=== PATIENT | male | born 1940 | race Caucasian/White ===

== ENCOUNTER 2018-08-20 13:40 | Emergency (ER) | payer MEDICARE ==
[~2018-08-20] VITALS: Ht 182.9 cm; Wt 115.7 kg
[~2018-08-20 13:40] MED LIST: DIGO.25 PO; DIGOX125 MCG PO; FURO40 PO; GLYB5 PO; IBUP800 PO; LOSA25 PO; METF500 PO; NAC600 MG PO; OXYACE5T PO; POTCHL20ER PO; VERA120 PO; VERA240ER PO; VERA240ERA PO; VERA80 PO; WARF2.5 PO; WARF3 PO; WARF5 PO
[2018-08-20] MEDS ORDERED: WARF3 PO (13:51)
[2018-08-20] MEDS ORDERED: Jantoven3 MG PO (13:57)
[2018-08-20 14:42] LABS: BASOPHILS ABSOLUTE AUTO 0.04 K/mm3 (0.00-0.23); BASOPHILS PERCENT AUTO 1 % (0-2); EOSINOPHILS ABSOLUTE AUTO 0.14 K/mm3 (0.00-0.68); EOSINOPHILS PERCENT AUTO 3 % (0-6); Hematocrit 41.3 % (37.0-53.0); Hemoglobin 13.2 g/dL (13.5-17.5); IMMATURE GRAN ABSOLUTE AUTO 0.01 K/mm3 (0.00-0.10); IMMATURE GRAN PERCENT AUTO 0 % (0-1); LYMPHOCYTES ABSOLUTE AUTO 0.65 K/mm3 (0.84-5.20); LYMPHOCYTES PERCENT AUTO 12 % (21-46); MONOCYTES ABSOLUTE AUTO 0.83 K/mm3 (0.16-1.47); MONOCYTES PERCENT AUTO 16 % (4-13); Mean Corpuscular HGB 31.1 pg (26.0-34.0); Mean Corpuscular Volume 97 fL (80-100); Mean Platelet Volume 11.1 fL (9.1-12.4); NEUTROPHILS PERCENT AUTO 69 % (41-73); Platelet Count 199 K/mm3 (150-400); RDW Coefficient Variation 15.7 % (11.7-14.2); RDW Standard Deviation 56.1 fL (35.1-46.3); Red Blood Cell Count 4.25 M/mm3 (4.30-5.90); White Blood Cell Count 5.37 K/mm3 (4.00-11.30)
[2018-08-20 15:05] LABS: Alanine Aminotransfer (ALT/SGP 26 U/L (12-78); Albumin, Blood 3.6 g/dL (3.4-5.0); Alk Phos 125 U/L (50-136); Anion Gap 8 mmol/L (6-16); Aspartate Aminotrans (AST/SGOT 22 U/L (12-37); Bilirubin, Total 0.7 mg/dL (0.1-1.0); Blood Urea Nitrogen 21 mg/dL (8-24); Bun/Creatinine Ratio 17.6 (12.0-20.0); CO2, Blood 26 mmol/L (21-32); Chloride, Blood 107 mmol/L (98-108); Creatinine, Blood 1.19 mg/dL (0.60-1.20); Globulin, Blood 3.7 g/dL (2.2-4.0); Glomerular Filtration Rate >60 (60-); Glucose, Blood 171 mg/dL (70-99); Potassium, Blood 4.2 mmol/L (3.5-5.5); Sodium, Blood 141 mmol/L (136-145); Total Protein, Blood 7.3 g/dL (6.4-8.2); Troponin I 0.042 ng/mL (0.000-0.040)
[2018-08-20] MEDS ORDERED: POTA8 PO (16:16)
[2018-08-20] MEDS ORDERED: CARV3.125 PO (16:16)
[2018-08-20 17:00] LABS: International Normalized Ratio 2.22; Prothrombin Time Results 21.9 Sec (9.7-11.5)
== END 2018-08-20 17:57 | disposition home or self-care (01) ==
LOC: ER 13:40
PROVIDERS: Physician Assistant
DX: I11.0 Hypertensive heart disease with heart failure (principal); I50.9 Heart failure, unspecified; E11.9 Type 2 diabetes mellitus without complications; I48.2 Chronic atrial fibrillation; Z86.73 Personal history of transient ischemic attack (TIA), and cerebral infarction without residual deficits; Z79.899 Other long term (current) drug therapy; Z79.01 Long term (current) use of anticoagulants; Z79.84 Long term (current) use of oral hypoglycemic drugs
CPT/HCPCS: 36415; 71046; 80053; 83880; 84484; 85025; 85610; 93005; 93010; 96374; 99284-25; J1940

== ENCOUNTER 2018-10-05 18:22 | Inpatient (IN) | payer MEDICARE ==
[~2018-10-05] VITALS: Ht 182.9 cm; Wt 110.0 kg
[~2018-10-05 18:22] MED LIST changes: -MIRALAX17 GM PO
[2018-10-05] MEDS ORDERED: LOSA25 PO (19:05)
[2018-10-05 22:06] LABS: International Normalized Ratio 1.94; Prothrombin Time Results 19.4 Sec (9.7-11.5)
--- NOTE | 2018-10-06 04:24 | NUR ---
10/05/182049 77 Y/O MALE ADMITTED TO 310 PER STRETCHER FROM ER WITH FAMILY AT SIDE. PT ORIENTED TO ROOM. ALERT AND ORIENTED X3.
--- NOTE | 2018-10-06 04:26 | NUR ---
SUMMARY: 77 Y/O MALE RESTED COMFORTABLY ALL EVENING. PT WAS MEDICATED X 2 FOR ABD DISCOMFORT RATED 6/10 AND GIVEN DILAUDID 0.5 MG. PT ALSO HAD EMESIS X 1 BILE (100 ML) FLUID WHICH RESOLVED AFTER ZOFRAN 4MG IVP GIVEN ALONG WITH COOL WASH CLOTH TO FOREHEAD. PT ALERT AND ORIENTED X 3. PTS BED LOW POSITION, CALL LIGHT AT SIDE.
[2018-10-06 05:20] LABS: International Normalized Ratio 1.85; Prothrombin Time Results 18.5 Sec (9.7-11.5)
[2018-10-06 05:23] LABS: Anion Gap 8 mmol/L (6-16); Blood Urea Nitrogen 25 mg/dL (8-24); Bun/Creatinine Ratio 21.6 (12.0-20.0); CO2, Blood 28 mmol/L (21-32); Calcium, Blood 9.6 mg/dL (8.5-10.1); Chloride, Blood 104 mmol/L (98-108); Creatinine, Blood 1.16 mg/dL (0.60-1.20); Glomerular Filtration Rate >60 (60-); Glucose, Blood 168 mg/dL (70-99); Potassium, Blood 3.6 mmol/L (3.5-5.5); Sodium, Blood 140 mmol/L (136-145)
--- NOTE | 2018-10-06 08:39 | NUR ---
ASSUMED CARE OF PT- BEDSIDE REPORT COMPLETED WITH TRACI TAM. PT ALERT AND ORIENTED, CURRENTLY NPO, ADMITTED FOR SBO. HAS A SMALL BOWEL FOLLOW THROUGH ORDERED. ON ASSESSMENT NOTED PT LLE IS VERY WARM TO THE TOUCH WITH +2 PITTING EDEMA AND THE RLE IS COLD TO TOUCH WITH NO EDEMA, THIS IS DIFFERENT THAN THE ADMITTING ASSESSMENT THAT SHOWED BOTH EXTREMITIES COOL AND WITHOUT EDEMA. SPOKE TO DR NGUYEN, PT HAS SCD'S ORDERED NOT CURRENTLY IN PLACE, REQUESTED VASCULAR STUDY TO RULE OUT DVT PRIOR TO APPLYING SCD'S. DR NGUYEN WILL EVALUATE THE PT SHORTLY, NO NEW ORDERS AT THIS TIME. PT IS ON COUMADIN, AND STATED HE HAS A Hx OF PE AND CVA.
--- NOTE | 2018-10-06 18:14 | NUR ---
SHIFT SUMMARY- PT HAS HAD NO ACUTE CHANGES T/O THE SHIFT. WAS MEDICATED FOR PAIN THREE TIMES WITH IV DILAUDID, WHEN MIXED IN 10ML OF NORMAL SALINE AND GIVEN OVER 5 MINUTES THE PT DID NOT EXPERIENCE ANY NAUSEA.WILL PASS ON IN BEDSIDE REPORT TO NIGHT MARTÍNEZ TAM.
--- NOTE | 2018-10-06 18:16 | NUR ---
SHIFT SUMMARY- PT HAS HAD NO ACUTE CHANGES T/O THE SHIFT. PT STILL ON COMFORT CARE AND ALERT AND ORIENTED ENOUGH TO DICTATE CARE AND PAIN MEDICATION DOSE. WILL PASS ON TO NIGHT RN IN BEDSIDE REPORT.
--- NOTE | 2018-10-07 04:41 | NUR ---
SUMMARY: 77 Y/O MALE HAD LARGE BROWN BM LAST NIGHT THAT HAD NUMEROUS SMALL PORTIONS OF STOOL ALONG WITH SOME WATERY STOOL. PT VOICED HE FELT 100% BETTER AFTER BM. PT DENIES PAIN OR NAUSEA. PT ABLE TO AMBULATE AROUND IN ROOM WITH GAIT SLOW AND STEADY. PTS TELEMETRY REFLECTS A-FIB. PTS BED IN LOW POSITION, CALL LIGHT AT SIDE.
[2018-10-07 04:59] LABS: International Normalized Ratio 2.02; Prothrombin Time Results 20.1 Sec (9.7-11.5)
--- NOTE | 2018-10-07 11:59 | NUR ---
PT ADVANCED TO FULL LIQUID PT TOLERATED CLEAR LIQUID WELL THIS AM. NO COMPLAINTS OF NAUSEA OR STOMACH UPSET. PT ADVANCED PER DR. EARLY'S ORDERED TO FULL LIQUID. WILL CONTINUE TO MONITOR.
[2018-10-07] MEDS ORDERED: MIRALAX17 GM PO ×2 (14:39)
--- NOTE | 2018-10-07 16:43 | NUR ---
LATE ENTRY- PT DISCHARGED PT DISCHARGED AT 1523. PT IN STABLE CONDITION WITH VSS. PT & FAMILY EDUCATED ON DC INSTRUCTIONS & FOLLOW UP APPOINTMENT. PT L& FAMILY DENIED FURTHER QUESTIONS. IV REMOVED & INTACT. PT WHEELED OUT BY ESCORT & DRIVEN HOME BY FAMILY.
== END 2018-10-07 15:23 | disposition home or self-care (01) | DRG 389 ==
LOC: ER 18:22 → MEDS 19:32 → ENPENDDIS 10-07 14:10 → MEDS 10-07 15:23
PROVIDERS: ADMIT Internal Medicine
DX: K56.609 Unspecified intestinal obstruction, unspecified as to partial versus complete obstruction (principal); N17.9 Acute kidney failure, unspecified; I50.22 Chronic systolic (congestive) heart failure; I48.91 Unspecified atrial fibrillation; E11.9 Type 2 diabetes mellitus without complications; Z79.01 Long term (current) use of anticoagulants; Z79.84 Long term (current) use of oral hypoglycemic drugs; I11.0 Hypertensive heart disease with heart failure; I67.1 Cerebral aneurysm, nonruptured; I48.2 Chronic atrial fibrillation
CPT/HCPCS: 36415; 74250; 80048; 82947; 85610; 96361; 96374; 99285-25; J1170; J2405; J7030

== ENCOUNTER → 2018-10-05 | Outpatient (CLI) | payer MEDICARE ==
[~2018-10-05] MED LIST changes: +CARV3.125 PO; +GLYB2.5 PO; +Jantoven3 MG PO; +MIRALAX17 GM PO; +POTA8 PO
[2018-10-05 16:10] LABS: BASOPHILS ABSOLUTE AUTO 0.04 K/mm3 (0.00-0.23); BASOPHILS PERCENT AUTO 1 % (0-2); EOSINOPHILS ABSOLUTE AUTO 0.03 K/mm3 (0.00-0.68); EOSINOPHILS PERCENT AUTO 0 % (0-6); Hematocrit 42.5 % (37.0-53.0); Hemoglobin 13.9 g/dL (13.5-17.5); IMMATURE GRAN ABSOLUTE AUTO 0.03 K/mm3 (0.00-0.10); IMMATURE GRAN PERCENT AUTO 0 % (0-1); LYMPHOCYTES PERCENT AUTO 11 % (21-46); MONOCYTES ABSOLUTE AUTO 0.55 K/mm3 (0.16-1.47); MONOCYTES PERCENT AUTO 7 % (4-13); Mean Corpuscular HGB 30.7 pg (26.0-34.0); Mean Corpuscular HGB Conc 32.7 g/dL (31.5-36.5); Mean Corpuscular Volume 94 fL (80-100); Mean Platelet Volume 11.1 fL (9.1-12.4); NEUTROPHILS ABSOLUTE AUTO 6.79 K/mm3 (1.96-9.15); NEUTROPHILS PERCENT AUTO 81 % (41-73); Platelet Count 275 K/mm3 (150-400); RDW Coefficient Variation 15.2 % (11.7-14.2); RDW Standard Deviation 53.3 fL (35.1-46.3); Red Blood Cell Count 4.53 M/mm3 (4.30-5.90); White Blood Cell Count 8.34 K/mm3 (4.00-11.30)
[2018-10-05 16:21] LABS: Albumin, Blood 3.9 g/dL (3.4-5.0); Albumin/Globulin Ratio 0.9 (0.8-1.8); Bun/Creatinine Ratio 16.6 (12.0-20.0); Calcium, Blood 9.7 mg/dL (8.5-10.1); Creatinine, Blood 1.45 mg/dL (0.60-1.20); Globulin, Blood 4.4 g/dL (2.2-4.0); Potassium, Blood 3.6 mmol/L (3.5-5.5); Total Protein, Blood 8.3 g/dL (6.4-8.2)
== END | disposition home or self-care (01) ==
LOC: LAB EV 16:03 → LAB SHORT 16:03
PROVIDERS: Physician Assistant
DX: R10.9 Unspecified abdominal pain (principal)
CPT/HCPCS: 80053; 85025

== ENCOUNTER 2019-05-22 18:33 | Inpatient (IN) | payer MEDICARE ==
[~2019-05-22] VITALS: Ht 182.9 cm; Wt 102.4 kg
[~2019-05-22 18:33] MED LIST changes: -GLYB2.5 PO; +Glyburide5 MG PO; +METF500C PO; +MIRALAX17 GM PO
[2019-05-22 19:39] LABS: BASOPHILS PERCENT AUTO 0 % (0-2); EOSINOPHILS PERCENT AUTO 0 % (0-6); Hematocrit 38.2 % (37.0-53.0); Hemoglobin 12.4 g/dL (13.5-17.5); IMMATURE GRAN ABSOLUTE AUTO 0.05 K/mm3 (0.00-0.10); IMMATURE GRAN PERCENT AUTO 1 % (0-1); LYMPHOCYTES ABSOLUTE AUTO 0.53 K/mm3 (0.84-5.20); LYMPHOCYTES PERCENT AUTO 5 % (21-46); MONOCYTES ABSOLUTE AUTO 0.55 K/mm3 (0.16-1.47); MONOCYTES PERCENT AUTO 5 % (4-13); Mean Corpuscular HGB 32.6 pg (26.0-34.0); Mean Corpuscular HGB Conc 32.5 g/dL (31.5-36.5); Mean Corpuscular Volume 101 fL (80-100); Mean Platelet Volume 12.4 fL (9.1-12.4); NEUTROPHILS ABSOLUTE AUTO 9.68 K/mm3 (1.96-9.15); NEUTROPHILS PERCENT AUTO 90 % (41-73); Platelet Count 162 K/mm3 (150-400); RDW Coefficient Variation 16.6 % (11.7-14.2); RDW Standard Deviation 61.3 fL (35.1-46.3); White Blood Cell Count 10.81 K/mm3 (4.00-11.30)
[2019-05-22 19:56] LABS: International Normalized Ratio 2.34
[2019-05-22] MEDS ORDERED: FUROSEMIDE40 MG PO (19:58)
[2019-05-22] MEDS ORDERED: ALLO100 PO (19:59)
[2019-05-22] MEDS ORDERED: CHLO25B PO (20:00)
[2019-05-22 20:10] LABS: Bun/Creatinine Ratio 41.3 (12.0-20.0); Calcium, Blood 9.3 mg/dL (8.5-10.1); Creatinine, Blood 1.43 mg/dL (0.60-1.20); Potassium, Blood 3.2 mmol/L (3.5-5.5); Troponin I 0.309 ng/mL (0.000-0.040)
[2019-05-22 22:52] LABS: International Normalized Ratio 2.54; Prothrombin Time Results 24.7 Sec (9.7-11.5)
[2019-05-22 22:54] LABS: Magnesium, Blood 2.1 mg/dL (1.6-2.4)
[2019-05-22 22:59] LABS: Troponin I 1.59 ng/mL (0.000-0.040)
--- NOTE | 2019-05-23 00:47 | NUR ---
PT ARRIVED FROM ER VIA STRETCHER APPROXIMATELY 2300 AND TRANSFERRED SELF TO BED; PT A&O; SMILING AND JOKING W/ STAFF AND FAMILY; SON AND DAUGHTER IN LAW PRESENT AT BEDSIDE; PT COMPLIANT W/ CARE; DENIES CHEST PAIN; PT STATES HE HAS LONG STANDING AFIB HX; PRIOR APPOINTMENTS W/ DR. HENAO; PT ON ; 02 SATS >94; PT STATES GOUT IN L FOOT; NUEROPATHY BLE; SKIN DRY AND FLAKY; LAB DRAW REPORTED TO ONCALL PROVIDER; TROPONIN 1.590; NO NEW ORDERS AT THIS TIME; CALL LIGHT IN REACH; BED IN LOWEST POSITION; WILL CONTINUE TO MONITOR CLOSELY
--- NOTE | 2019-05-23 04:49 | NUR ---
SHIFT SUMMARY PT A&O; SLEPT WELL IN BETWEEN INTERVENTIONS; PT USES URINAL AT BEDSIDE; ON RA; O2 SATS >92; PT PLEASANT AND COMPLIANT W/ CARE; PT DENIES CHEST PAIN; DENIES NEEDS AT THIS TIME; DR. GALVEZ MADE AWARE OF TROPONIN HE WAS ON THE PHONE; NO NEW ORDERS; SKID FREE SOCKS IN PLACE; PT EDUCATED ON NEED TO CALL FOR STAFF FOR SAFETY WHEN AMBULATING; CALL LIGHT IN REACH; BED IN LOWEST POSITION; WILL CONTINUE TO MONITOR UNTIL HAND OFF TO DAY SHIFT RN.
[2019-05-23 06:29] LABS: Hematocrit 39.5 % (37.0-53.0); Hemoglobin 12.9 g/dL (13.5-17.5); Mean Corpuscular HGB 32.8 pg (26.0-34.0); Mean Corpuscular HGB Conc 32.7 g/dL (31.5-36.5); Mean Corpuscular Volume 101 fL (80-100); Mean Platelet Volume 12.3 fL (9.1-12.4); Platelet Count 167 K/mm3 (150-400); RDW Coefficient Variation 16.7 % (11.7-14.2); RDW Standard Deviation 60.5 fL (35.1-46.3); Red Blood Cell Count 3.93 M/mm3 (4.30-5.90)
[2019-05-23 06:54] LABS: Albumin, Blood 3.6 g/dL (3.4-5.0); Bilirubin, Total 1.3 mg/dL (0.1-1.0); Bun/Creatinine Ratio 45.1 (12.0-20.0); Calcium, Blood 9.4 mg/dL (8.5-10.1); Creatinine, Blood 1.42 mg/dL (0.60-1.20); Globulin, Blood 3.7 g/dL (2.2-4.0); Potassium, Blood 3.6 mmol/L (3.5-5.5); Total Protein, Blood 7.3 g/dL (6.4-8.2)
[2019-05-23 07:09] LABS: Troponin I 4.53 ng/mL (0.000-0.040)
[2019-05-23 15:21] LABS: Troponin I 4.41 ng/mL (0.000-0.040)
--- NOTE | 2019-05-23 20:58 | NUR ---
sitting up using urinal brought up hr but it dropped back down to 104 after a moment, stated he felt fine, bp 107/77 so will monitor post prescribed lopressor
[2019-05-23 21:24] LABS: International Normalized Ratio 3.19; Prothrombin Time Results 30.4 Sec (9.7-11.5)
--- NOTE | 2019-05-24 07:31 | NUR ---
a+o, room air, saline locked, monitored HR during shift, call light in reach, will share bsr with day staff, no major medical changes noted during shift, states he has not had a bm since , no abmn pain nor is he feeling bloated, states he has not had enough to eat to have out put and is not worried, passed info on to day staff, assisted pt to modify surroundings for own comfort while mainting quality care.
[2019-05-24 13:49] LABS: International Normalized Ratio 3.18; Prothrombin Time Results 30.3 Sec (9.7-11.5)
--- NOTE | 2019-05-24 18:34 | NUR ---
SHIFT NOTE PT HAS BEEN A/O X4 LAUHGING AND JOKING WITH STAFF T/O DAY. PT DID HAVE 1 EPISODE OF SOB THAT HE STS THAT WAS RESOLVED WITH PLACING HIMSELF ON NASAL CANNULA, BUT O2 WAS NOT FLOWING TO NASAL CANNULA THAT HE HAD PLACED WITH GOOD RESULTS. VSS. OTHERWISE HAS NOT COMPLAINED OF ANY ADDITIONAL SOB TODAY, DENIES CP.
--- NOTE | 2019-05-24 19:10 | NUR ---
CARDIOLOGY: CALLED DR PEÑALOZA WHILE AT HOME TO FIND OUT PLAN FOR PT D/T PT NOT BEING SIGNED OUT TO DR MONROY. REPORT OF PT TO BE NPO AFTER MIDNIGHT TONIGHT SO PT CAN BE TAKEN FOR A CATH TOMORROW. NURSING ENGRAVING PLATE MAKER NOTIFIED OF CATH TOMORROW.
--- NOTE | 2019-05-24 21:04 | NUR ---
sitting up in chair when assessed post shift report, states concerned r/blood sugar, discussed and agreed to assist monitor, informed of tomorrows procedure and pending npo, cheerful and cooperative, will continue to monitor and treat
[2019-05-25 04:01] LABS: Albumin, Blood 3.5 g/dL (3.4-5.0); Anion Gap 10 mmol/L (6-16); Blood Urea Nitrogen 62 mg/dL (8-24); Bun/Creatinine Ratio 48.1 (12.0-20.0); CO2, Blood 28 mmol/L (21-32); Calcium, Blood 8.9 mg/dL (8.5-10.1); Chloride, Blood 102 mmol/L (98-108); Creatinine, Blood 1.29 mg/dL (0.60-1.20); Glomerular Filtration Rate 57 (60-); Glucose, Blood 200 mg/dL (70-99); Phosphorus, Blood 2.8 mg/dL (2.5-4.9); Potassium, Blood 2.9 mmol/L (3.5-5.5); Sodium, Blood 140 mmol/L (136-145)
--- NOTE | 2019-05-25 07:34 | NUR ---
low potassium so started ordered iv, site blown so started new IV, raised amount of ns, until able to tolerate potassium, call light in reach, rm air, no significant change during shift, looking forward to procedue this am
[2019-05-25 16:33] LABS: Albumin, Blood 3.5 g/dL (3.4-5.0); Bilirubin, Direct 1.3 mg/dL (0.0-0.3); Bilirubin, Indirect 0.9 mg/dL (0.1-0.7); Bilirubin, Total 2.2 mg/dL (0.1-1.0); Globulin, Blood 3.5 g/dL (2.2-4.0)
--- NOTE | 2019-05-25 19:17 | NUR ---
SHIFT NOTE PT HAS REMAINED A/O X4 T/O SHIFT, ASNWERING QUESTIONS IN FULL SENTENCES. PT DENIES CP OR SOB T/O SHIFT. PT IS AWARE THAT HE WILL BE GOING FOR ANGIO IN THE AM. DR PEÑALOZA WAS IN TO SEE PT TODAY AND CONCERNS WERE DISCUSSED PT WAS ASKING TO LEAVE AMA, HE DID HOWEVER DECIDE TO STAY THE NIGHT FOR ANGIO IN THE AM
--- NOTE | 2019-05-26 03:55 | NUR ---
SHIFT SUMMARY PT PLEASANT AND COOPERATIVE. JOKED WITH STAFF THROUGHOUT THE NIGHT. SLEPT OFF AND ON. PT HOPEFUL FOR POSSIBLE ANGIOGRAM TODAY. TELEMETRY AFIB W/ PVC'S AT 110. NO COMLAINTS OF CHEST PAIN OR SOB. VOIDING WELL. NPO SINCE MIDNIGHT FOR POSSIBLE ANGIO. VITAL SIGNS STABLE. NO ACUTE CHANGES THIS EVENING.
[2019-05-26 06:25] LABS: Albumin, Blood 3.4 g/dL (3.4-5.0); Anion Gap 10 mmol/L (6-16); Blood Urea Nitrogen 54 mg/dL (8-24); Bun/Creatinine Ratio 43.2 (12.0-20.0); CO2, Blood 28 mmol/L (21-32); Chloride, Blood 104 mmol/L (98-108); Creatinine, Blood 1.25 mg/dL (0.60-1.20); Glomerular Filtration Rate 59 (60-); Glucose, Blood 175 mg/dL (70-99); Phosphorus, Blood 2.9 mg/dL (2.5-4.9); Potassium, Blood 3.5 mmol/L (3.5-5.5); Sodium, Blood 142 mmol/L (136-145)
[2019-05-26 06:32] LABS: International Normalized Ratio 2.21; Prothrombin Time Results 21.8 Sec (9.7-11.5)
--- NOTE | 2019-05-26 14:02 | NUR ---
REPORT TO MEDICAL FLOOR RN
--- NOTE | 2019-05-26 14:44 | NUR ---
PT RETURNS FROM [facility] WITH BILAT TR BANDS IN PLACE. RADIAL PULSES INTACT BULAT, CAP REFILL GOOD BILAT, FULL ROM OF FINGERS TO HANDS BILAT, NO ACTIVE BLEEDING NOTED FROM SITE FROM EITHER WRIST.
--- NOTE | 2019-05-26 15:59 | NUR ---
PT RESTING WELL IN BEDSIDE CHAIR. NO BLEEDING NOTED TO BILAT TR BAND SITES. PULSES INTACT. VSS
--- NOTE | 2019-05-26 17:00 | NUR ---
1ML RELEASED FROM TR BAND BILAT, NO ACTIVE BLEEDING NOTED FROM INSERTION SITES. PULSES PRESENT BILAT AROUND TR BAND SITES BLAT
--- NOTE | 2019-05-26 17:29 | NUR ---
PT DID GO TO HEART CENTER TODAY, RETURNED WITH BILAT TR BANDS IN PLACE, PUNCTURE SITES ARE FREE OF DRAINAGE, PULSES ARE INTACT BILAT AROUND TR BAND. PT DENIES PAIN. PT IS COMPLIANT WITH NOT MOVING WRISTS OR BEARING WEIGHT. VSS. [facility] ONTINUE TO MONITOR FOR BLEEDING AND REMOVE AIR FROM RT BAND
--- NOTE | 2019-05-26 18:34 | NUR ---
TOTAL OF 3ML OF AIR REMOVED AINCE 1630 FROM BILAT TR BANDS. NO ACTIVE BLEEDING NOTED FROM TR BAND SITES. RADIAL PULSES PRESENT BILAT. ROM NOTED TO FINGERS BILAT. CAP REFIL <2 BILAT. SKIN PWD. PT COMPLIANT WITH NOT USING ARMS
--- NOTE | 2019-05-26 20:56 | NUR ---
ASSUMED CARE OF PATIENT AT 1900, PATIENT AWAKE AND ALERT IN RECLINER IN NO SIGNS OF DISTRESS. VERIFIED SURG SITES BILATERAL WRISTS, BOTH INTACT, CLEAN, NO SWELLING NO REDNESS, NO PAIN, PER PT. PT STATES SENSATION NORMAL AT FINGERTIPS. AT 2000 HRS REMOVED TWO ML AIR FEROM TR CUFFS, LEAVING ABOUT 3. SAME ASSESSMENT: INTACT AND NO CHANGES. WILL CONTINUE TO MONITOR
--- NOTE | 2019-05-26 22:27 | NUR ---
REMOVED THE LAST OF THE AIR FROM BOTH TR BANDS, BOTH SITES INTACT NO CHANGES, SENSATION INTACT AT FINGERTIPS, NO PAIN, NO SWELLING, NO REDNESS, NO BLEEDING. WILL LEAVE BANDS ON PER PROTOCOL AND CHECK IN AN HOUR.
[2019-05-27 04:13] LABS: International Normalized Ratio 2.04; Prothrombin Time Results 20.3 Sec (9.7-11.5)
[2019-05-27 04:23] LABS: Albumin, Blood 3.3 g/dL (3.4-5.0); Anion Gap 8 mmol/L (6-16); Blood Urea Nitrogen 55 mg/dL (8-24); Bun/Creatinine Ratio 40.7 (12.0-20.0); CO2, Blood 29 mmol/L (21-32); Calcium, Blood 8.7 mg/dL (8.5-10.1); Chloride, Blood 101 mmol/L (98-108); Creatinine, Blood 1.35 mg/dL (0.60-1.20); Glomerular Filtration Rate 54 (60-); Glucose, Blood 204 mg/dL (70-99); Phosphorus, Blood 2.9 mg/dL (2.5-4.9); Potassium, Blood 3.7 mmol/L (3.5-5.5); Sodium, Blood 138 mmol/L (136-145)
--- NOTE | 2019-05-27 07:15 | NUR ---
REPORT REC'D. PT SITTING UP IN BED. DENIES ANY NEEDS. RT BAND SITES VIEWED WITH NOC RN, CDI. PT DENIES ANY NEEDS. ASSESSMENT NOTED. CALL LIGTH IN REACH.
--- NOTE | 2019-05-27 08:10 | NUR ---
SHIFT SUMMARY NO ACUTE CHANGES FROM PREVIOUS NOTES. PATIENT IS INDEPENDENT IN ROOM, SURGICAL SITES INTACT, VITAL SIGNS STABLE AND W/IN NORMAL LIMITS. MEDICATED AND TREATED PER EMAR AND UNIT PROTOCOL. PASSED CARE AND REPORT TO ONCOMING SHIFT AT 0700, PATIENT AWAKE IN RECLINER, CALL LIGHT IN REACH
--- NOTE | 2019-05-27 18:51 | NUR ---
UNEVENTFUL DAY. PT HAD NO NEW COMPLAINTS. PROCEDURES POSTPONED TO SUNDAY. PT IN GOOD SPIRITS. CALM AND COOPERATIVE. VISITORS T/O THE DAY. NO SIG CHANGES. COVERAGE PROVIDED FOR POCT GLU. WILL CONT TO MONITOR DOCUMENT ANY CHANGES AND REPORT TO HEALTHCARE MARKETER RN. CALL LIGHT AND BELONGINGS IN REACH.
[2019-05-27 18:55] LABS: Magnesium, Blood 2.4 mg/dL (1.6-2.4); Potassium, Blood 3.4 mmol/L (3.5-5.5)
[2019-05-28 03:53] LABS: International Normalized Ratio 1.78; Prothrombin Time Results 17.9 Sec (9.7-11.5)
[2019-05-28 03:56] LABS: Albumin, Blood 3.2 g/dL (3.4-5.0); Anion Gap 7 mmol/L (6-16); Blood Urea Nitrogen 47 mg/dL (8-24); Bun/Creatinine Ratio 36.7 (12.0-20.0); CO2, Blood 30 mmol/L (21-32); Calcium, Blood 8.6 mg/dL (8.5-10.1); Chloride, Blood 103 mmol/L (98-108); Creatinine, Blood 1.28 mg/dL (0.60-1.20); Glomerular Filtration Rate 58 (60-); Glucose, Blood 114 mg/dL (70-99); Phosphorus, Blood 2.7 mg/dL (2.5-4.9); Potassium, Blood 3.4 mmol/L (3.5-5.5); Sodium, Blood 140 mmol/L (136-145)
--- NOTE | 2019-05-28 07:39 | NUR ---
END OF SHIFT SUMMARY NO ACUTE CHANGES THIS SHIFT. VSS, HOTN NOTED BUT WERE STABLE ENOUGHT TO ADMINISTER METOPROLOL WITHIN PARAMETERS. BILAT WRIST ANGIO SITES INTACT, DRESSED, AND SECURED WITH ARMBOARDS. BOTH REMAIN WITHOUT NEW DRAINAGE AND BRUISING. PULSES STRONG DISTYALLY. PT HAS CONTINUED TO DENY CP, SWEATING, NAUSEA, ETC. PT HAS CONTINUED AXO AND USES CALL LIGHT APPROPRIATELY. REPORT GIVEN TO ONCOMING RN.
--- NOTE | 2019-05-28 20:04 | NUR ---
SHIFT SUMMARY PT A&Ox4. CAML AND COOPERATIVE WITH CARE. PT UP IN CHAIR OR SIDE OF BED FOR MEALS. IND IN ROOM. PT DENIES SOB, PAIN, NAUSEA, CP AND LIGHTHEADED AND DIZZINESS T/O SHIFT. PT RECEIVING IV LASIX. NO CHANGES TO BILATERL WRIST ACCESS SITES. PROCEDURE PLANNED FOR TOMORROW, NPO AFTER MIDNIGHT, PT EDUCATED ON NPO STATUS AND PROCEDURE IN AM. ATTEMPTED TO REPLACE POTASSIUM IV, PT UNABLE TO TOLERATE, DR WHITE NOTIFIED, NEW ORDERS FOR PO POTASSIUM. VSS. NO OTHER ACUTE CHANGES NOTED DURING SHIFT. REPORT GIVEN TO ONCOMING RN.
[2019-05-29 03:46] LABS: BASOPHILS ABSOLUTE AUTO 0.03 K/mm3 (0.00-0.23); BASOPHILS PERCENT AUTO 0 % (0-2); EOSINOPHILS PERCENT AUTO 1 % (0-6); Hematocrit 38.8 % (37.0-53.0); Hemoglobin 12.3 g/dL (13.5-17.5); IMMATURE GRAN ABSOLUTE AUTO 0.04 K/mm3 (0.00-0.10); IMMATURE GRAN PERCENT AUTO 1 % (0-1); LYMPHOCYTES ABSOLUTE AUTO 1.02 K/mm3 (0.84-5.20); LYMPHOCYTES PERCENT AUTO 15 % (21-46); MONOCYTES ABSOLUTE AUTO 0.69 K/mm3 (0.16-1.47); MONOCYTES PERCENT AUTO 10 % (4-13); Mean Corpuscular HGB 32.5 pg (26.0-34.0); Mean Corpuscular HGB Conc 31.7 g/dL (31.5-36.5); Mean Corpuscular Volume 103 fL (80-100); Mean Platelet Volume 12.4 fL (9.1-12.4); NEUTROPHILS ABSOLUTE AUTO 5.15 K/mm3 (1.96-9.15); NEUTROPHILS PERCENT AUTO 73 % (41-73); NRBC ABSOLUTE 0.02 K/mm3 (0.00-0.02); NRBC Auto 0.3 /100 WBC (0.0-0.2); Platelet Count 140 K/mm3 (150-400); RDW Coefficient Variation 17.6 % (11.7-14.2); RDW Standard Deviation 64.4 fL (35.1-46.3); Red Blood Cell Count 3.78 M/mm3 (4.30-5.90); White Blood Cell Count 7.03 K/mm3 (4.00-11.30)
[2019-05-29 03:59] LABS: Source, Urine Catheter
[2019-05-29 04:00] LABS: International Normalized Ratio 1.64; Prothrombin Time Results 16.6 Sec (9.7-11.5)
[2019-05-29 04:01] LABS: Bilirubin, Urine Neg (Neg); Blood, Urine Neg (Neg); Glucose Qualitative, Urine Neg (Neg); Ketones, Urine Neg (Neg); Leukocyte Esterase, Urine Neg (Neg); Nitrite, Urine Neg (Neg); Protein, Urine Neg (Neg); Urobilinogen, Urine 3+ (Normal)
[2019-05-29 04:01] LABS: Anion Gap 8 mmol/L (6-16); Blood Urea Nitrogen 42 mg/dL (8-24); CO2, Blood 27 mmol/L (21-32); Calcium, Blood 8.4 mg/dL (8.5-10.1); Chloride, Blood 105 mmol/L (98-108); Glomerular Filtration Rate >60 (60-); Glucose, Blood 164 mg/dL (70-99); Potassium, Blood 3.4 mmol/L (3.5-5.5); Sodium, Blood 140 mmol/L (136-145)
[2019-05-29 04:02] LABS: Appearance, Urine Clear (Clear); Color, Urine Yellow (P-Yellow)
--- NOTE | 2019-05-29 06:05 | NUR ---
SHIFT SUMMARY NPO SINCE MIDNIGHT FOR PROCEDURE TODAY. STANTON CATH INSERTED THIS AM PER ORDERS, DRAIN CLEAR YELLOW URINE. PULSES MARKED PER EMAR. BILAT RADIAL SITES WITH SLIGHT BRUISING, PULSES PALBABLE ABOVE AND BELOW, CAP REFIL WNL. NO OTHER CHANGES. WILL CONT TO MONITOR AND PROVIDE CARE UNTIL PRESUMED BY ONCOMING RN.
--- NOTE | 2019-05-29 10:24 | NUR ---
PT RETURNS FROM [employer], RT GROIN SITE HAS BLEEDING CONTROLLED AFTER MANUAL PRESSURE WAS APPLIED, SITE COVERED WITH GUAZE AND [id number] DRESSING. TR BAND INPLACE TO LT WRIST THAT HAS 12ML AIR IN IT WITH NO ACTIVE BLEEDING, PULSES ARE INTACT AROUND TR BAND. PT REMAINS A/O X4 DENIES PAIN AT THIS TIME. NO SOB OR CP STS "I FEEL FINE" RECOVERY VITALS BEING ASSESSED
--- NOTE | 2019-05-29 11:14 | NUR ---
PT HAS REFUSED TRANSPORT UNTIL HE SPEAKS TO , PT'S FAMILY IS CALLED TO COME IN TO DISCUSS OPTIONS AT THIS TIME. FAMILY STATE THEY WILL BE HERE IN ABOUT AN HOUR
--- NOTE | 2019-05-29 11:36 | NUR ---
PEDAL AND RADIAL PULSES REMAIN INTACT AND BOUNDING BILAT. NO ACTIVE BLEEDING NOTED FROM FEMORAL OR RADIAL SITES, DRESSINGS REMAIN IN PLACE. VSS.
--- NOTE | 2019-05-29 12:47 | NUR ---
REPORT TO CALLED TO JEOV[facility] GUIDO [facility]
--- NOTE | 2019-05-29 13:01 | NUR ---
TR BAND SITE ON left wrist and right groin sites were checked for complications. No swelling, no evidence of hematoma, nor active bleed noted The pt denies pain/numbness. Capillary refill in left hand is 3-4 seconds, and 3 seconds in the right foot toes. TR band remains in place. Bruising noted around the site on the left wrist, but no firmness or hematoma noted. Pt states he has no discomfort at this time.s He was given applesauce before his oral potassium was administered. Family at the bedside. Notified family of pt's anticipated room assisngment at [facility] in [place].
--- NOTE | 2019-05-29 13:10 | NUR ---
2 cc air removed from TR band. Site remains as before, no changes to bruising which is soft, and no evidence of swelling, hematoma or active bleed. Distal pulse palpated, and fingers are pink, warm, dry. Pt is talking cheerfully.
== END 2019-05-29 13:25 | disposition short-term general hospital (02) | DRG 280 ==
LOC: ER 18:33 → PCU 18:34
PROVIDERS: Emergency Medicine; Family Medicine; Hospitalist; Internal Medicine Cardiovascular Disease; Internal Medicine Interventional Cardiology; Physician Assistant; ADMIT Internal Medicine
PROC: B2111ZZ Fluoroscopy of Multiple Coronary Arteries using Low Osmolar Contrast (ICD-10-PCS; principal; 2019-05-26)
DX: I21.4 Non-ST elevation (NSTEMI) myocardial infarction (principal); I50.23 Acute on chronic systolic (congestive) heart failure; E87.1 Hypo-osmolality and hyponatremia; Z79.84 Long term (current) use of oral hypoglycemic drugs; Z79.01 Long term (current) use of anticoagulants; I71.4 Abdominal aortic aneurysm, without rupture; Z86.73 Personal history of transient ischemic attack (TIA), and cerebral infarction without residual deficits; E11.65 Type 2 diabetes mellitus with hyperglycemia; E87.6 Hypokalemia; I27.20 Pulmonary hypertension, unspecified; N18.3 Chronic kidney disease, stage 3 (moderate); I08.3 Combined rheumatic disorders of mitral, aortic and tricuspid valves; E11.51 Type 2 diabetes mellitus with diabetic peripheral angiopathy without gangrene; M10.9 Gout, unspecified; I95.9 Hypotension, unspecified
CPT/HCPCS: 36415; 51702; 71045; 71275; 75630; 80048; 80053; 80069; 80076; 81003; 82550; 82947; 83735; 83880; 84132; 84484; 85025; 85027; 85610; 85730; 93005; 93010; 93306; 93458; 96374; 99152; 99153; 99285-25; C1769; C1887; C1894; G0378; J1644; J1940; J2250; J3010; J3480; J7030; J7050; Q9967

== ENCOUNTER 2019-07-01 11:52 | Emergency (ER) | payer MEDICARE ==
[~2019-07-01] VITALS: Ht 182.9 cm; Wt 115.2 kg
[~2019-07-01 11:52] MED LIST changes: +ALLO100 PO; +CHLO25B PO; +FUROSEMIDE40 MG PO
[2019-07-01 12:48] LABS: BASOPHILS ABSOLUTE AUTO 0.04 K/mm3 (0.00-0.23); BASOPHILS PERCENT AUTO 1 % (0-2); EOSINOPHILS ABSOLUTE AUTO 0.09 K/mm3 (0.00-0.68); EOSINOPHILS PERCENT AUTO 2 % (0-6); Hematocrit 37.7 % (37.0-53.0); Hemoglobin 12.1 g/dL (13.5-17.5); IMMATURE GRAN ABSOLUTE AUTO 0.02 K/mm3 (0.00-0.10); IMMATURE GRAN PERCENT AUTO 0 % (0-1); LYMPHOCYTES ABSOLUTE AUTO 0.69 K/mm3 (0.84-5.20); LYMPHOCYTES PERCENT AUTO 13 % (21-46); MONOCYTES ABSOLUTE AUTO 0.56 K/mm3 (0.16-1.47); MONOCYTES PERCENT AUTO 10 % (4-13); Mean Corpuscular HGB Conc 32.1 g/dL (31.5-36.5); Mean Corpuscular Volume 103 fL (80-100); Mean Platelet Volume 11.8 fL (9.1-12.4); NEUTROPHILS PERCENT AUTO 74 % (41-73); Platelet Count 151 K/mm3 (150-400); RDW Coefficient Variation 17.7 % (11.7-14.2); Red Blood Cell Count 3.67 M/mm3 (4.30-5.90)
[2019-07-01 13:15] LABS: Albumin, Blood 3.3 g/dL (3.4-5.0); Bun/Creatinine Ratio 44.4 (12.0-20.0); Calcium, Blood 8.9 mg/dL (8.5-10.1); Creatinine, Blood 1.35 mg/dL (0.60-1.20); Globulin, Blood 3.3 g/dL (2.2-4.0); Potassium, Blood 2.4 mmol/L (3.5-5.5); Total Protein, Blood 6.6 g/dL (6.4-8.2)
[2019-07-01 13:16] LABS: Troponin I 0.085 ng/mL (0.000-0.040)
[2019-07-01 13:17] LABS: Bilirubin, Total 2.5 mg/dL (0.1-1.0)
[2019-07-01] MEDS ORDERED: K-Dur20 MEQ PO (14:58)
== END 2019-07-01 17:40 | disposition home or self-care (01) ==
LOC: ER 11:52
PROVIDERS: Physician Assistant
DX: I50.9 Heart failure, unspecified (principal); E11.9 Type 2 diabetes mellitus without complications; Z79.899 Other long term (current) drug therapy; Z79.01 Long term (current) use of anticoagulants; Z86.73 Personal history of transient ischemic attack (TIA), and cerebral infarction without residual deficits
CPT/HCPCS: 36415; 71046; 80053; 83880; 84484; 85025; 93005; 93010; 96365; 96366; 99284-25; J3480

== ENCOUNTER 2019-08-30 12:23 | Inpatient (IN) | payer MEDICARE, OTHER ==
[~2019-08-30] VITALS: Ht 182.9 cm; Wt 112.7 kg
[~2019-08-30 12:23] MED LIST changes: +K-Dur20 MEQ PO
[2019-08-30] MEDS ORDERED: POTCHL20ER PO (12:45)
[2019-08-30] MEDS ORDERED: ABAT250V (12:45)
[2019-08-30] MEDS ORDERED: LISI5 PO (12:45)
[2019-08-30] MEDS ORDERED: SPIR25 PO (12:47)
[2019-08-30 13:27] LABS: BASOPHILS ABSOLUTE AUTO 0.05 K/mm3 (0.00-0.23); BASOPHILS PERCENT AUTO 0 % (0-2); EOSINOPHILS ABSOLUTE AUTO 0.01 K/mm3 (0.00-0.68); EOSINOPHILS PERCENT AUTO 0 % (0-6); Hemoglobin 13.4 g/dL (13.5-17.5); IMMATURE GRAN ABSOLUTE AUTO 0.09 K/mm3 (0.00-0.10); IMMATURE GRAN PERCENT AUTO 1 % (0-1); LYMPHOCYTES ABSOLUTE AUTO 0.24 K/mm3 (0.84-5.20); LYMPHOCYTES PERCENT AUTO 2 % (21-46); MONOCYTES ABSOLUTE AUTO 0.86 K/mm3 (0.16-1.47); MONOCYTES PERCENT AUTO 6 % (4-13); Mean Corpuscular HGB 33.3 pg (26.0-34.0); Mean Corpuscular HGB Conc 31.9 g/dL (31.5-36.5); Mean Corpuscular Volume 105 fL (80-100); Mean Platelet Volume 11.4 fL (9.1-12.4); NEUTROPHILS ABSOLUTE AUTO 12.96 K/mm3 (1.96-9.15); NEUTROPHILS PERCENT AUTO 91 % (41-73); Platelet Count 171 K/mm3 (150-400); RDW Coefficient Variation 17.2 % (11.7-14.2); RDW Standard Deviation 67.3 fL (35.1-46.3); Red Blood Cell Count 4.02 M/mm3 (4.30-5.90); White Blood Cell Count 14.21 K/mm3 (4.00-11.30)
[2019-08-30 13:52] LABS: Alanine Aminotransfer (ALT/SGP 23 U/L (12-78); Albumin, Blood 3.4 g/dL (3.4-5.0); Albumin/Globulin Ratio 1.1 (0.8-1.8); Alk Phos 136 U/L (50-136); Anion Gap 8 mmol/L (6-16); Aspartate Aminotrans (AST/SGOT 27 U/L (12-37); Blood Urea Nitrogen 17 mg/dL (8-24); Bun/Creatinine Ratio 14.9 (12.0-20.0); CO2, Blood 24 mmol/L (21-32); Chloride, Blood 109 mmol/L (98-108); Creatinine, Blood 1.14 mg/dL (0.60-1.20); Globulin, Blood 3.1 g/dL (2.2-4.0); Glomerular Filtration Rate >60 (60-); Glucose, Blood 128 mg/dL (70-99); Potassium, Blood 3.9 mmol/L (3.5-5.5); Sodium, Blood 141 mmol/L (136-145); Total Protein, Blood 6.5 g/dL (6.4-8.2); Troponin I 0.068 ng/mL (0.000-0.040)
[2019-08-30] MEDS ORDERED: PLAVIX75 MG PO (15:47)
[2019-08-30] MEDS ORDERED: CARV6.25 PO (15:50)
[2019-08-30 17:26] LABS: International Normalized Ratio 1.83; Prothrombin Time Results 18.9 Sec (9.7-11.5)
--- NOTE | 2019-08-30 19:20 | NUR ---
SHIFT SUMMARY. ADMISSION NOTE. PT AXO, PLEASANT AND COOPERATIVE WITH CARE THOUGH FORGETFUL. VSS THOUGH PULSE ELEVATED PER DESSERT CUP MACHINE FEEDER. PT RUNNING A-FIB AT 130 AT TIME OF ASSESSMENT. MEDICATED PER EMAR. PT DENIES PAIN. PT COMPLAINED OF BEING SOB, WHEN O2 SAT ASSESSED, PT WAS 82%. NURSE PUT PT ON 4L AND ANOTHER O2 SAT PROBE. PT 100 ON 4L. PT ON 2L AT THIS TIME. STATES THAT THE OXYGEN IMPROVES HIS SOB. PT LYING FLAT IN BED AT THIS TIME. PT HAD ONE EPISODE OF N/V, REFUSED ZOFRAN AT THIS TIME. BED IN LOW POSITION, CALL LIGHT WITHIN REACH, BED ALARM ON.
--- NOTE | 2019-08-30 21:50 | NUR ---
TROPONIN INCREASED FROM 0.068 TO 0.091. NOTIFIED LAURENCE VELASQUEZ NP. PT CURRENTLY DENIES CHEST PAIN. NO SOB. TELE CURRENTLY SHOWING AFIB, BBB, HR 72.
[2019-08-31 04:58] LABS: Hematocrit 36.8 % (37.0-53.0); Hemoglobin 11.7 g/dL (13.5-17.5); Mean Corpuscular HGB 33.1 pg (26.0-34.0); Mean Corpuscular HGB Conc 31.8 g/dL (31.5-36.5); Mean Corpuscular Volume 104 fL (80-100); Mean Platelet Volume 11.2 fL (9.1-12.4); Platelet Count 145 K/mm3 (150-400); RDW Coefficient Variation 17.1 % (11.7-14.2); Red Blood Cell Count 3.54 M/mm3 (4.30-5.90); White Blood Cell Count 9.64 K/mm3 (4.00-11.30)
[2019-08-31 05:15] LABS: International Normalized Ratio 1.93; Prothrombin Time Results 19.9 Sec (9.7-11.5)
[2019-08-31 05:20] LABS: Bun/Creatinine Ratio 15.9 (12.0-20.0); Calcium, Blood 8.6 mg/dL (8.5-10.1); Creatinine, Blood 1.32 mg/dL (0.60-1.20); Magnesium, Blood 1.8 mg/dL (1.6-2.4); Phosphorus, Blood 2.8 mg/dL (2.5-4.9); Potassium, Blood 3.3 mmol/L (3.5-5.5); Troponin I 0.104 ng/mL (0.000-0.040)
--- NOTE | 2019-08-31 06:31 | NUR ---
SHIFT SUMMARY: VSS. AFEB. 02 SAT 95% ON RA. CONT W/ EXERTIONAL DYSPNEA. LSCTA W/DIM BASES. OCC, INFREQUENT DRY COUGH. MINIMAL LE EDEMA W/ SCANT WHEEPING FROM SEVERAL SMALL BLISTERS, BOTH NEW AND HEALING. BLE ELEVATED. PT DENIES CHEST PAIN. A/O- ANSWERS QUESTIONS APPROPRIATELY. BED LOW, CALL BUTTON IN REACH. WILL CONT TO MONITOR.
--- NOTE | 2019-08-31 17:17 | NUR ---
SHIFT SUMMARY PT AXO, PLEASANT AND COOPERATIVE WITH CARE. VSS THOUGH BP SLIGHTLY LOW, DR MANTILLA AWARE. AM DOSE OF COREG AND LASIX ORIGIONALLY HELD R/T BP. THOUGH DR. MANTILLA HAD NURSE RECHECK BP AND THEN GIVE LASIX. PT ON TELE RUNNING A FIB WITH PVC'S, (ABOUT 11 PER MINUTE, DR FERRARI) IN THE 90'S. PT DENIES PAIN AND NV. COMPLAINED OF SOB WITH EXERTION. PT UP TO CHAIR THROUGHOUT THE DAY WITH BLE ELEVATED. BED IN LOW POSITION, CALL LIGHT WITHIN REACH. PATIENT HAS URINATED ABOUT 1000ML SO FAR THIS SHIFT.
--- NOTE | 2019-09-01 05:04 | NUR ---
SHIFT SUMMARY- PT. A&O, UP IN CHAIR MOST OF THE EVENING. ASSISTED BACK INTO BED WHERE HE APPEARED TO HAVE RESTED WELL FOR THE REMAINDER OF THE SHIFT. BLE ELEVATED PER ORDER. PT. DENIED ANY PAIN OR DISCOMFORT DURING THE NIGHT. VSS, NO ACUTE CHANGES TO CONDITION. CALL LIGHT WITHIN REACH AND SIDE RAILS UP X2. WILL CONT TO MONITOR.
[2019-09-01 05:37] LABS: International Normalized Ratio 1.82; Prothrombin Time Results 18.8 Sec (9.7-11.5)
[2019-09-01 05:41] LABS: Albumin, Blood 2.8 g/dL (3.4-5.0); Anion Gap 6 mmol/L (6-16); Blood Urea Nitrogen 23 mg/dL (8-24); Bun/Creatinine Ratio 19.2 (12.0-20.0); CO2, Blood 33 mmol/L (21-32); Calcium, Blood 8.2 mg/dL (8.5-10.1); Chloride, Blood 100 mmol/L (98-108); Glomerular Filtration Rate >60 (60-); Glucose, Blood 114 mg/dL (70-99); Sodium, Blood 139 mmol/L (136-145)
--- NOTE | 2019-09-01 12:20 | NUR ---
NOTIFIED OF POTASSIUM LEVEL. MED CHANGES MADE.
--- NOTE | 2019-09-01 18:20 | NUR ---
SHIFT SUMMARY NO ACUTE CHANGES. PATIENT UP WITH PT TODAY. PATIENT REPORTS HE IS A POSSIBLE DC TOMORROW
[2019-09-02 05:43] LABS: International Normalized Ratio 1.88; Prothrombin Time Results 19.4 Sec (9.7-11.5)
[2019-09-02 06:08] LABS: Albumin, Blood 2.7 g/dL (3.4-5.0); Anion Gap 7 mmol/L (6-16); Blood Urea Nitrogen 26 mg/dL (8-24); Bun/Creatinine Ratio 23.2 (12.0-20.0); CO2, Blood 32 mmol/L (21-32); Calcium, Blood 8.2 mg/dL (8.5-10.1); Chloride, Blood 97 mmol/L (98-108); Creatinine, Blood 1.12 mg/dL (0.60-1.20); Glomerular Filtration Rate >60 (60-); Glucose, Blood 118 mg/dL (70-99); Phosphorus, Blood 2.3 mg/dL (2.5-4.9); Sodium, Blood 136 mmol/L (136-145)
--- NOTE | 2019-09-02 06:46 | NUR ---
SHIFT SUMMARY PATIENT ALERT AND ORIENTED. VERY PLEASANT. ABLE TO SLEEP WELL MOST OF THE NIGHT. IV PATENT AND FLUSHED. BED IN LOWEST POSITION WITH WHEELS LOCKED. CALL LIGHT WITHIN REACH. REPORT GIVEN TO ONCOMING RN.
--- NOTE | 2019-09-02 13:24 | NUR ---
SHIFT SUMMARY PT AWAKE AGAIN AT START OF SHIFT. PLEASANT AND CO-OP, WANTING TO GO HOME. DR HAUSER IN TO SEE PT THIS AM. LLE REMAINS VERY SWOLLEN AND RED WITH WEEPING EDEMA. SCATTERED SCABS ON BOTH LEGS. PT UNABLE TO BE D/C'D YET. MEDICATIONS ADJUSTED AGAIN AND LE'S ELEVATED PER DR HAUSER. PT REMAINS ON FR 1.5L; DOING A LITTLE BETTER TODAY ABOUT COMPLIANCE. PT UP TO CHAIR AND ABLE TO AMBULATE IN RM AND TO BTHRM. PT ABLE TO WORK WITH PT/OT TODAY. NO C/O. CALL LT IN REACH.
--- NOTE | 2019-09-02 13:52 | NUR ---
TAKING OVER CARE OF PT AT 1351. REPORT GIVEN BY PRIOR RN. PT IS SLEEPING AT THIS TIME. WILL CONTINUE TO MONITOR.
--- NOTE | 2019-09-02 17:25 | NUR ---
PT IS AO AND COOPERATIVE OF CARE. SPENT THE AFTERNOON UNCHAIR NAPPING. PT DENIES PAIN AT THIS TIME. PT UP EATING DINNER, NO DISTRESS NOTED. WILL CONTINUE TO MONITOR.
[2019-09-03 05:25] LABS: International Normalized Ratio 2.27; Prothrombin Time Results 23.2 Sec (9.7-11.5)
[2019-09-03 05:31] LABS: Albumin, Blood 2.6 g/dL (3.4-5.0); Anion Gap 8 mmol/L (6-16); Blood Urea Nitrogen 24 mg/dL (8-24); Bun/Creatinine Ratio 22.4 (12.0-20.0); CO2, Blood 33 mmol/L (21-32); Chloride, Blood 96 mmol/L (98-108); Creatinine, Blood 1.07 mg/dL (0.60-1.20); Glomerular Filtration Rate >60 (60-); Glucose, Blood 123 mg/dL (70-99); Phosphorus, Blood 2.1 mg/dL (2.5-4.9); Potassium, Blood 2.6 mmol/L (3.5-5.5); Sodium, Blood 137 mmol/L (136-145)
--- NOTE | 2019-09-03 05:57 | NUR ---
SHIFT SUMMARY- NO ACUTE EVENTS OVERNIGHT. PT. PLEASANT AND COOPERATIVE WITH CARE. C/O NOGUERA 1X. MEDICTED PER EMAR WITH GOOD RELIEF. PT. RESTED WELL T/O MOST OF THE NIGHT. NO APPARENT DISTRESS NOTED. DENIED ANY OTHER NEEDS THIS SHIFT. CALL LIGHT WITHIN REACH AND SIDE RAILS UP X2. WILL CONT TO MONITOR.
--- NOTE | 2019-09-03 14:01 | NUR ---
BLOOD PRESSURES NOTIFIED DR. HAUSER WHEN SHE WAS ROUNDING THIS MORNING THAT PATIENT'S BLOOD PRESSURES LOW, PT DENIES NOGUERA, DIZZINESS, SOB. RECHECKED BP DURING PT, IMPROVED. PT DENIES ANY S/SX OF ORTHOSTATIC HYPOTENSION AT THIS TIME.
--- NOTE | 2019-09-03 19:39 | NUR ---
SHIFT SUMMARY PATIENT STAYED WITHIN FLUID RESTRICTION TODAY; EXCITED TO GO HOME. UP IN THE CHAIR MOST OF THE DAY. BLOOD PRESSURES IMPROVED, DENIES S/SX OF HYPOTENSION.
[2019-09-04 04:48] LABS: International Normalized Ratio 2.9; Prothrombin Time Results 29.2 Sec (9.7-11.5)
[2019-09-04 04:49] LABS: Albumin, Blood 2.7 g/dL (3.4-5.0); Anion Gap 5 mmol/L (6-16); Blood Urea Nitrogen 25 mg/dL (8-24); Bun/Creatinine Ratio 22.9 (12.0-20.0); CO2, Blood 35 mmol/L (21-32); Calcium, Blood 8.5 mg/dL (8.5-10.1); Chloride, Blood 95 mmol/L (98-108); Creatinine, Blood 1.09 mg/dL (0.60-1.20); Glomerular Filtration Rate >60 (60-); Glucose, Blood 122 mg/dL (70-99); Phosphorus, Blood 2.6 mg/dL (2.5-4.9); Potassium, Blood 3.1 mmol/L (3.5-5.5); Sodium, Blood 135 mmol/L (136-145)
[2019-09-04] MEDS ORDERED: POTCHL20ER PO (10:28)
[2019-09-04] MEDS ORDERED: FURO20 PO (10:29)
[2019-09-04] MEDS ORDERED: CARV3.125 PO (10:29)
[2019-09-04] MEDS ORDERED: Lisinopril2.5 MG PO (10:30)
--- NOTE | 2019-09-04 11:22 | NUR ---
PATIENT DISCHARGE PATIENT DISCHARGED TO HOME, DRIVEN HOME BY SON. GIVEN PATIENT DISCHARGE INSTRUCTIONS, USED DISCUSSION AND TEACHBACK TO REVIEW D/C INSTRUCTIONS WITH PATIENT. TOPICS INCLUDED FOLLOW UP WITH CARDIOLOGY AND PCP, NEW MEDICATIONS WELL IMPORTANCE OF TAKING BLOOD PRESSURE AT HOME TWICE A DAY BEFORE MEDS DUE TO PARAMETER, LUMP RECEIVER RX AT PHARMACY, S/SX OF CELLULITIS, AFIB EDUCATION, COUMADIN EDUCATION, CHF EDUCATION. PERIPHERAL IV REMOVED WNL.
== END 2019-09-04 11:19 | disposition home or self-care (01) | DRG 291 ==
LOC: ER 12:23 → MEDS 17:26
PROVIDERS: Family Medicine; Physician Assistant; ADMIT Internal Medicine
DX: I13.0 Hypertensive heart and chronic kidney disease with heart failure and stage 1 through stage 4 chronic kidney disease, or unspecified chronic kidney disease (principal); I50.23 Acute on chronic systolic (congestive) heart failure; I48.20 Chronic atrial fibrillation, unspecified; E11.22 Type 2 diabetes mellitus with diabetic chronic kidney disease; N18.3 Chronic kidney disease, stage 3 (moderate); M10.9 Gout, unspecified; E87.6 Hypokalemia; I25.10 Atherosclerotic heart disease of native coronary artery without angina pectoris; I95.1 Orthostatic hypotension; E83.39 Other disorders of phosphorus metabolism; E66.9 Obesity, unspecified; Z68.34 Body mass index [BMI] 34.0-34.9, adult; Z96.653 Presence of artificial knee joint, bilateral; Z91.14 Patient's other noncompliance with medication regimen; Z95.5 Presence of coronary angioplasty implant and graft; Z86.73 Personal history of transient ischemic attack (TIA), and cerebral infarction without residual deficits; Z79.01 Long term (current) use of anticoagulants; Z79.02 Long term (current) use of antithrombotics/antiplatelets
CPT/HCPCS: 36415; 71045; 80048; 80053; 80069; 82947; 83735; 83880; 84100; 84484; 85025; 85027; 85610; 93005; 93010; 93308; 93321; 93971; 96374; 97110; 97116; 97161; 97165; 97530; 97535; 99285-25; A9270; A9270-GY; J1940; J7060

== ENCOUNTER 2019-09-08 11:23 | Inpatient (IN) | payer MEDICARE, OTHER ==
[~2019-09-08] VITALS: Ht 182.9 cm; Wt 115.0 kg
[~2019-09-08 11:23] MED LIST changes: +ABAT250V; +CARV6.25 PO; +FURO20 PO; +LISI5 PO; +Lisinopril2.5 MG PO; +PLAVIX75 MG PO; +SPIR25 PO
[2019-09-08 11:50] LABS: Calcium, Ionized (POC) 1.06 mmol/L (1.10-1.46); Chloride (POC) 96 mmol/L (98-108); Creatinine (POC) 1.2 mg/dL (0.8-1.3); Glucose (ISTAT POC) 219 mg/dL (70-99); Hemoglobin (POC) 14.6 g/dL (13.5-17.5); Potassium (POC) 3.7 mmol/L (3.5-5.5); Sodium (POC) 134 mmol/L (135-148); Total CO2 (POC) 31 mmol/L (21-32)
[2019-09-08 11:54] LABS: BASOPHILS ABSOLUTE AUTO 0.07 K/mm3 (0.00-0.23); BASOPHILS PERCENT AUTO 0 % (0-2); EOSINOPHILS PERCENT AUTO 0 % (0-6); Hematocrit 42.5 % (37.0-53.0); Hemoglobin 13.4 g/dL (13.5-17.5); IMMATURE GRAN PERCENT AUTO 2 % (0-1); LYMPHOCYTES ABSOLUTE AUTO 0.36 K/mm3 (0.84-5.20); LYMPHOCYTES PERCENT AUTO 2 % (21-46); MONOCYTES ABSOLUTE AUTO 0.59 K/mm3 (0.16-1.47); MONOCYTES PERCENT AUTO 3 % (4-13); Mean Corpuscular HGB 32.1 pg (26.0-34.0); Mean Corpuscular HGB Conc 31.5 g/dL (31.5-36.5); Mean Corpuscular Volume 102 fL (80-100); Mean Platelet Volume 10.7 fL (9.1-12.4); NEUTROPHILS ABSOLUTE AUTO 20.98 K/mm3 (1.96-9.15); NEUTROPHILS PERCENT AUTO 93 % (41-73); Platelet Count 312 K/mm3 (150-400); RDW Coefficient Variation 16.5 % (11.7-14.2); RDW Standard Deviation 62.9 fL (35.1-46.3); Red Blood Cell Count 4.17 M/mm3 (4.30-5.90)
[2019-09-08 12:11] LABS: Alanine Aminotransfer (ALT/SGP 25 U/L (12-78); Albumin, Blood 2.6 g/dL (3.4-5.0); Albumin/Globulin Ratio 0.6 (0.8-1.8); Alk Phos 145 U/L (50-136); Anion Gap 7 mmol/L (6-16); Aspartate Aminotrans (AST/SGOT 40 U/L (12-37); Blood Urea Nitrogen 27 mg/dL (8-24); Bun/Creatinine Ratio 24.5 (12.0-20.0); CO2, Blood 30 mmol/L (21-32); Calcium, Blood 8.8 mg/dL (8.5-10.1); Chloride, Blood 98 mmol/L (98-108); Globulin, Blood 4.3 g/dL (2.2-4.0); Glomerular Filtration Rate >60 (60-); Glucose, Blood 214 mg/dL (70-99); Potassium, Blood 3.8 mmol/L (3.5-5.5); Sodium, Blood 135 mmol/L (136-145); Total Protein, Blood 6.9 g/dL (6.4-8.2); Troponin I 0.097 ng/mL (0.000-0.040)
[2019-09-08 12:17] LABS: BAND PERCENT MAN 4 % (0-8); BASOPHILS PERCENT MAN 0 % (0-2); EOSINOPHILS PERCENT MAN 0 % (0-6); LYMPHOCYTES ABSOLUTE MAN 0.22 K/mm3 (0.84-5.20); LYMPHOCYTES PERCENT MAN 1 % (21-46); METAMYELOCYTE ABSOLUTE MAN 0.22 K/mm3 (0.00-0.00); METAMYELOCYTE PERCENT MAN 1 % (0-0); MONOCYTES ABSOLUTE MAN 0.45 K/mm3 (0.16-1.47); MONOCYTES PERCENT MAN 2 % (4-13); SEG NEUTROPHILS PERCENT MAN 92 % (41-73); TOTAL CELLS COUNTED 100
[2019-09-08 12:25] LABS: Source, Urine Clean Catch
[2019-09-08 12:30] LABS: Appearance, Urine Clear (Clear); Blood, Urine 1+ (Neg); Color, Urine Yellow (P-Yellow); Glucose Qualitative, Urine Neg (Neg); Ketones, Urine Neg (Neg); Leukocyte Esterase, Urine 1+ (Neg); Nitrite, Urine Neg (Neg); Protein, Urine 2+ (Neg); Specific Gravity, Urine 1.015 (1.003-1.022); Urobilinogen, Urine 4+ (Normal)
[2019-09-08 12:52] LABS: Bilirubin, Urine 1+ (Neg)
[2019-09-08 12:56] LABS: Amorphous Light (0-Heavy); Bacteria Rare /hpf; Red Blood Cells, Urine 0-2 /hpf (0-2); Squamous Epithelial Cells Rare /hpf (Few)
[2019-09-08] MEDS ORDERED: CHLO25B PO (13:03)
[2019-09-08] MEDS ORDERED: Glyburide5 MG PO (13:03)
[2019-09-08] MEDS ORDERED: SPIRONOLACTONE25 MG PO (13:04)
[2019-09-08 14:51] LABS: International Normalized Ratio 2.3; Prothrombin Time Results 23.5 Sec (9.7-11.5)
--- NOTE | 2019-09-08 17:05 | NUR ---
Admission/Hall of Care: Patient arrived to unit at approx 1530hr, via stretcher, accompanied by ED nurse. Patient alert and oriented to time/date, self, and place. Denies pain, discomfort, SOB, or dyspnea. SpO2- 92-98% on 2L/NC. Heart rhythm shows A-fibb in the low 100's, BP stable. Peripheral IV's x2 patent and intact. Temp-probe segal in place upon arrival, patent and intact, draining dark yellow urine. Oriented to room, call light and instructed to not get out of bed without assistance. Call placed to Dr. Hannah shortly after admission. Dr. Hannah did not wish to administer IV fluids at that time, instructed to give ordered Albumin and Florinef, and hold IV lasix at that time. Also received order for PCR panel and informed Dr. Hannah that hospital policy now requires her to phone/call the cardiology consult. Repeat lactic acid and troponin values received at approx 1655hr. Call placed to Dr. Hannah to report lab values. Received order for 250ml NS bolus. VSS remains stable at this time. Patient calm and comfortable, cooperative with staff. Will continue to monitor.
[2019-09-08 18:21] LABS: Adenovirus Not Detected (NOT DETECT); Bordetella pertussis Not Detected (NOT DETECT); Chlamydophila pneumoniae Not Detected (NOT DETECT); Coronavirus 229E Not Detected (NOT DETECT); Coronavirus HKU1 Not Detected (NOT DETECT); Coronavirus NL63 Not Detected (NOT DETECT); Coronavirus OC43 Not Detected (NOT DETECT); Human Metapneumovirus Not Detected (NOT DETECT); Human Rhinovirus/Enterovirus Not Detected (NOT DETECT); Influenza A/2009-H1 Not Detected (NOT DETECT); Influenza A/H1 Not Detected (NOT DETECT); Influenza A/H3 Not Detected (NOT DETECT); Influenza B Not Detected (NOT DETECT); Mycoplasma pneumoniae Not Detected (NOT DETECT); Parainfluenza Virus 1 Not Detected (NOT DETECT); Parainfluenza Virus 2 Not Detected (NOT DETECT); Parainfluenza Virus 3 Not Detected (NOT DETECT); Parainfluenza Virus 4 Not Detected (NOT DETECT); Respiratory Syncytial Virus Not Detected (NOT DETECT)
--- NOTE | 2019-09-08 18:55 | NUR ---
Shift Summary: No significant changes throughout remainder of shift. Patient remains calm and cooperative, with staff. Continues to denies dyspnea/SOB, SpO2-95-98% on 2L/NC. C/o pain to chest (r/t CPR), PO Tylenol given, patient now sleeping, no further complaints. VSS remains stable, HR- 80's-90's, with occasional PVC's. Vallejo cath remains patent and intact, draining dark yellow cloudy urine. Peripheral IV's x2 remain patent and intact. Tolerated PO fluids and small amount of dinner tray without difficult.
[2019-09-09 03:51] LABS: BASOPHILS ABSOLUTE AUTO 0.05 K/mm3 (0.00-0.23); BASOPHILS PERCENT AUTO 0 % (0-2); EOSINOPHILS ABSOLUTE AUTO 0.02 K/mm3 (0.00-0.68); EOSINOPHILS PERCENT AUTO 0 % (0-6); Hematocrit 39.4 % (37.0-53.0); Hemoglobin 12.5 g/dL (13.5-17.5); IMMATURE GRAN ABSOLUTE AUTO 0.16 K/mm3 (0.00-0.10); IMMATURE GRAN PERCENT AUTO 1 % (0-1); LYMPHOCYTES ABSOLUTE AUTO 0.74 K/mm3 (0.84-5.20); LYMPHOCYTES PERCENT AUTO 3 % (21-46); MONOCYTES ABSOLUTE AUTO 0.74 K/mm3 (0.16-1.47); MONOCYTES PERCENT AUTO 3 % (4-13); Mean Corpuscular HGB 32.5 pg (26.0-34.0); Mean Corpuscular HGB Conc 31.7 g/dL (31.5-36.5); Mean Corpuscular Volume 102 fL (80-100); Mean Platelet Volume 10.2 fL (9.1-12.4); NEUTROPHILS ABSOLUTE AUTO 22.09 K/mm3 (1.96-9.15); NEUTROPHILS PERCENT AUTO 93 % (41-73); Platelet Count 255 K/mm3 (150-400); RDW Coefficient Variation 16.4 % (11.7-14.2); RDW Standard Deviation 62.6 fL (35.1-46.3); Red Blood Cell Count 3.85 M/mm3 (4.30-5.90)
[2019-09-09 04:11] LABS: Alanine Aminotransfer (ALT/SGP 21 U/L (12-78); Albumin, Blood 2.5 g/dL (3.4-5.0); Albumin/Globulin Ratio 0.7 (0.8-1.8); Alk Phos 117 U/L (50-136); Anion Gap 6 mmol/L (6-16); Aspartate Aminotrans (AST/SGOT 20 U/L (12-37); Bilirubin, Total 3.1 mg/dL (0.1-1.0); Blood Urea Nitrogen 28 mg/dL (8-24); Bun/Creatinine Ratio 25.7 (12.0-20.0); CO2, Blood 32 mmol/L (21-32); Calcium, Blood 8.9 mg/dL (8.5-10.1); Chloride, Blood 99 mmol/L (98-108); Creatinine, Blood 1.09 mg/dL (0.60-1.20); Globulin, Blood 3.7 g/dL (2.2-4.0); Glomerular Filtration Rate >60 (60-); Glucose, Blood 141 mg/dL (70-99); Magnesium, Blood 2.1 mg/dL (1.6-2.4); Potassium, Blood 3.5 mmol/L (3.5-5.5); Sodium, Blood 137 mmol/L (136-145); Total Protein, Blood 6.2 g/dL (6.4-8.2)
--- NOTE | 2019-09-09 06:31 | NUR ---
SHIFT SUMMARY PATIENT SLEPT WELL THROUGH NIGHT. DID HAVE SOME LOW BLOOD PRESSURES EARLIER IN NIGHT, SPOKE WITH DR. BARRON AND LAURENCE, DESULFURIZER HAND, NO ORDERS RECEIVED, NOT CONSISTENTLY LOW BLOOD PRESSURES. ASSESSMENT IS CHARTED. VSS. NO C/O PAIN. WILL CONTINUE TO MONITOR.
--- NOTE | 2019-09-09 12:34 | NUR ---
DR. EARLY AT BEDSIDE FOR ASSESSMENT. NO NEW ORDERS AT THIS TIME. INFORMED PROVIDER THAT PT'S WAS ASKING (THROUGH THEIR SON) THAT DR. BELLA COME IN TO SEE THE PATIENT. DR. EARLY STATED THAT THERE WAS NO MEDICAL NEED FOR DR. BELLA TO BE COMSULTED. WILL INFORM SON AT HIS NEXT PHONE CALL.
--- NOTE | 2019-09-09 13:18 | NUR ---
NO DVT PROPHY ORDERED. SPOKE TO DR. EARLY BY PHONE, REQUESTED ORDER. ORDER PLACED.
--- NOTE | 2019-09-09 19:26 | NUR ---
SHIFT SUMMARY: TMAX 101.1; TYLENOL GIVEN. PT DENIED ANY OTHER SXS (NO CHILLS, RIGORS NOTED). BLE WRAPPED WITH DRY GAUZE DRESSINGS THEY HAVE BEEN WEEPING. HR REMAINS IN AFIB WITH RATE 90-110'S, UP TO 120'S WITH ACTIVITY OR WHILE ON THE PHONE. ROOM AIR, LUNGS DIM THROUGHOUT, NO COUGH (UNABLE TO OBTAIN SPUTUM SPECIMEN). CBG < 200. APPETITE FAIR. C/O MILD DISCOMFORT IN CHEST, IS POSITIONAL, APPEARS TO BE MSK, POSSIBLY FROM CHEST COMPRESSIONS. RECORDS FROM [facility] OBTAINED, ARE IN CHART.
[2019-09-10 03:46] LABS: Hematocrit 38.7 % (37.0-53.0); Hemoglobin 12.5 g/dL (13.5-17.5); Mean Corpuscular HGB Conc 32.3 g/dL (31.5-36.5); Mean Corpuscular Volume 102 fL (80-100); Mean Platelet Volume 10.9 fL (9.1-12.4); Platelet Count 282 K/mm3 (150-400); RDW Coefficient Variation 16.4 % (11.7-14.2); RDW Standard Deviation 62.8 fL (35.1-46.3); Red Blood Cell Count 3.79 M/mm3 (4.30-5.90); White Blood Cell Count 18.26 K/mm3 (4.00-11.30)
[2019-09-10 04:00] LABS: International Normalized Ratio 2.79; Prothrombin Time Results 28.2 Sec (9.7-11.5)
[2019-09-10 04:02] LABS: BAND PERCENT MAN 4 % (0-8); BASOPHILS PERCENT MAN 0 % (0-2); EOSINOPHILS PERCENT MAN 0 % (0-6); LYMPHOCYTES ABSOLUTE MAN 0.36 K/mm3 (0.84-5.20); LYMPHOCYTES PERCENT MAN 2 % (21-46); MONOCYTES ABSOLUTE MAN 0.18 K/mm3 (0.16-1.47); MONOCYTES PERCENT MAN 1 % (4-13); NEUTROPHILS ABSOLUTE MAN 17.71 K/mm3 (1.96-9.15); SEG NEUTROPHILS PERCENT MAN 93 % (41-73); TOTAL CELLS COUNTED 100
[2019-09-10 04:03] LABS: Bun/Creatinine Ratio 29.4 (12.0-20.0); Calcium, Blood 9.2 mg/dL (8.5-10.1); Creatinine, Blood 1.26 mg/dL (0.60-1.20); Magnesium, Blood 2.1 mg/dL (1.6-2.4); Potassium, Blood 4.2 mmol/L (3.5-5.5)
--- NOTE | 2019-09-10 04:10 | NUR ---
NOTIFIED BY NOAH IN LAB PATIENT IS NEGATIVE FOR COVID-19!!!
--- NOTE | 2019-09-10 04:57 | NUR ---
SHIFT SUMMARY PATIENT HAS SLEPT WELL THROUGH NIGHT. NO ACUTE CHANGES OVERNIGHT. ASSESSMENT IS CHARTED. NO C/O PAIN. VSS. WILL CONTINUE TO MONITOR.
--- NOTE | 2019-09-10 07:00 | NUR ---
REC'D REPORT FROM MARTÍNEZ TELLES AND AM NOW ASSUMING CARE OF THIS PT.
--- NOTE | 2019-09-10 07:15 | NUR ---
AM ASSESSMENT: PT IS ALERT AND ORIENTED X3. PLEASANT AND COOPERATIVE WITH CARE. PT FOLLOWS COMMANDS AND ANSWER QUESTIONS APPROPRIATELY. SPEECH IS SLIGHTLY GARBLED, WHICH IS LIKELY CONTRIBUTED TO PT NOT HAVING DENTURES. PT DOES REPORT CVA IN '96. PT REPORTS NUMBNESS/TINGLING IN BILATERAL LE'S. PT DENIES ANY PAIN AT THIS TIME. LUNGS ARE CLEAR BUT DIMINISHED IN THE BILATERAL BASES/RML. SP02 SATS-LOW 90% RANGE. HR IRREGULAR, ATRIAL FIB WITH FREQUENT PVC'S/DVOMLLUF-39-725'S RANGE. BILATERAL LE'S 3-4+ HARD, PITTING/WEEPING EDEMA. PIV'S SL'D AT THIS TIME. ABD LARGE/ROUND/NON-TENDER TO PALPATION. BT'S SLIGHTLY HYPOACTIVE X4 QAUDS. STANTON CATH DRAINING CLEAR, NIMO COLORED URINE TO GRAVITY. -COVID NEGATIVE -LIMITED CODE-DEFIB OK -CBG'S AC/HS
--- NOTE | 2019-09-10 10:47 | NUR ---
DR ROSALESY IN TO ASSESS PT. REQUESTED A RESWABB FOR COVID-19. PT SWABBED AND WALKED UP TO LAB.
--- NOTE | 2019-09-10 12:44 | NUR ---
PT UPDATE: PT FINISHED UP LUNCH AND REQUESTED TO GO BACK TO BED. PT ASSISTED WITH 1 PERSON ASSIST WITH MARGO JOHNS BACK TO BED. CALL LIGHT WITHIN REACH.
--- NOTE | 2019-09-10 17:33 | NUR ---
Per admit trigger, I was tasked to provide information/education to pt regarding advanced care planning. Mr. Nicholson informed me that "all that paper-work is at home." Encouraged celia Natarajan with a copy. Then he began to tell me that he "" 2 days ago and was brought back. He explained that he's had numerous brushes with , but had never actually . We had an easy rapport, and Mr. Nicholson appeared to enjoy theraputic listening and encouragement. I will remain available.
--- NOTE | 2019-09-10 17:36 | NUR ---
SHIFT SUMMARY: PT REMAINS ALERT AND ORIENTED X3. PLEASANT AND COOPERATIVE WITH CARE. PT HAS SOMEWHAT GARBLED SPEECH (PT DOES NOT HAVE DENTURES). ANSWERS QUESTIONS AND FOLLOWS COMMANDS. PT ABLE TO ASSIST WITH TURNS IN THE BED. LUNGS ARE CLEAR BUT DIMINISHED IN THE BILATERAL BASES. SP02 SATS LOW 90% ON RA, BUT DOES REQUIRE 2L 02 VIA N/C WHEN SLEEPING. HR IRREGULAR, ATRIAL FIB W/ FREQUENT PVC'S AND SOME SHORT, NON-SUSTAINED RUNS OF VTACH. , RATES 90-100'S RANGE. ABD LARGE/ROUND/NON-TENDER TO PALPATION. PT HAS A POOR TO FAIR APPETITE. PT HAS BEEN INCONTINENT OF SOFT, BROWN STOOL A COUPLE TIMES THIS SHIFT. STANTON CATH DRAINING CLEAR, NIMO COLORED URINE.
--- NOTE | 2019-09-10 19:00 | NUR ---
REPORTED OFF TO [facility] WHOM IS NOW ASSUMING CARE OF THE PT.
--- NOTE | 2019-09-10 19:30 | NUR ---
ASSUMED CARE NOTE: ASSUMED CARE OF PT @ 1900, RECEVIED REPORT FROM [facility]. PT IS A/OX3. PT IS ON RA WITH SPO2 AVOVE 95% PT HAS NONPRODUCTIVE COUGH. PT IS IN A-FIB WITH PVS'S. HR BETWEEN, 70-100. PT DENIES SOB/CP AT THIS TIME. PT DENIES NAUSEA/VOMITING, ACTIVE BOWEL TONES HEARD, IN ALL FOUR QUADRANTS. PT HAS A TEMP STANTON, DRAINING NIMO COLORED URINE. BP STABLE. BED AT LOWEST LEVEL, CALL LIGHT WITHIN REACH. WILL CONTINUE TO MONITOR PT T/O SHIFT.
[2019-09-11 03:57] LABS: BASOPHILS ABSOLUTE AUTO 0.02 K/mm3 (0.00-0.23); BASOPHILS PERCENT AUTO 0 % (0-2); EOSINOPHILS ABSOLUTE AUTO 0.04 K/mm3 (0.00-0.68); EOSINOPHILS PERCENT AUTO 0 % (0-6); Hematocrit 36.1 % (37.0-53.0); Hemoglobin 11.6 g/dL (13.5-17.5); IMMATURE GRAN ABSOLUTE AUTO 0.11 K/mm3 (0.00-0.10); IMMATURE GRAN PERCENT AUTO 1 % (0-1); LYMPHOCYTES ABSOLUTE AUTO 0.72 K/mm3 (0.84-5.20); LYMPHOCYTES PERCENT AUTO 6 % (21-46); MONOCYTES ABSOLUTE AUTO 0.69 K/mm3 (0.16-1.47); MONOCYTES PERCENT AUTO 5 % (4-13); Mean Corpuscular HGB 32.3 pg (26.0-34.0); Mean Corpuscular HGB Conc 32.1 g/dL (31.5-36.5); Mean Corpuscular Volume 101 fL (80-100); Mean Platelet Volume 10.9 fL (9.1-12.4); NEUTROPHILS ABSOLUTE AUTO 11.24 K/mm3 (1.96-9.15); NEUTROPHILS PERCENT AUTO 88 % (41-73); Platelet Count 317 K/mm3 (150-400); RDW Coefficient Variation 16.5 % (11.7-14.2); RDW Standard Deviation 61.7 fL (35.1-46.3); Red Blood Cell Count 3.59 M/mm3 (4.30-5.90); White Blood Cell Count 12.82 K/mm3 (4.00-11.30)
--- NOTE | 2019-09-11 04:04 | NUR ---
UPDATE: BLADDER SCAN PERFORMED, RESULT [id number]. CALLED , ORDERS GIVEN TO PLACE STANTON CATH. PT TOLERATED PRODECURE WILL. STANTON DRAINING NIMO COLORED URINE. PT BLOOD PRESSURE CONTINUES TO DECREASE, LEVOPHED UP TO 14MCG/MIN. PT IS STILL ALERT AND ORIENTED. PT DENIES FEELING WEAK/DIZZY. WILL CONTINUE TO MONITOR PT.
[2019-09-11 04:12] LABS: International Normalized Ratio 2.91; Prothrombin Time Results 29.3 Sec (9.7-11.5)
[2019-09-11 04:21] LABS: Bun/Creatinine Ratio 31.4 (12.0-20.0); Calcium, Blood 9.1 mg/dL (8.5-10.1); Creatinine, Blood 1.4 mg/dL (0.60-1.20); Magnesium, Blood 2.1 mg/dL (1.6-2.4); Potassium, Blood 4.1 mmol/L (3.5-5.5)
--- NOTE | 2019-09-11 06:28 | NUR ---
SHIFT SUMMARY : NO ACUTE CHANGES T/O SHIFT. PT SLEPT FOR MOST OF THE NIGHT. PT REQUIRED 2L OF 02 VIA NC. PT REFUSED TO BE REPOSITIONED T/O THE NIGHT. PT WAS ENCOURGED TO MOVE FROM SIDE TO SIDE. PILLOWS PLACED UNDER BLE FOR SUPPORT. PT HAS BEEN IN AFIB WITH PVC'S HR BETWEEN 70-90. STANTON PATENT AND DRAINING NIMO URINE. IV'S SALINE LOCKED. PT HAS REQUIRED PRN PAIN MEDS T/O SHIFT FOR RIB PAIN R/T CPR. WILL CONTINUE TO MONITOR PT UNTIL REPORT IS GIVEN TO ONCOMING SHIFT
--- NOTE | 2019-09-11 08:00 | NUR ---
PT AWAKE WATCHING TV IN BED. GENERALIZED WEAKNESS NOTED BUT CAN MOVE UPPER EXT'S ON OWN FOR MINIMUM SELF CARE. C/O RIGHT SHOULDER PAIN 7/10; TOLERABLE. HURTS ONLY WITH MOVEMENT. TAKES ORAL INTAKE GOOD. BILATERAL LE'S CONTINUE TO BE VERY EDEMATOUS/CELLULITIS NOTED WITH SOME WEEPING NOTED, DRESSINGS IN PLACE. WILL CLEANSED AND CHANGE DRESSINGS TODAY. VSS. RHYTHM A-FIB WITH CONTROL RATE. CONTINUE TO MONITOR AND TX PRN.
--- NOTE | 2019-09-11 09:30 | NUR ---
RECEIVED CALL FROM [facility] OFFICE OF DR BARRON. PER YEIMY, WILL TENTATIVELY WILL COME ON SUNDAY LATER AFTERNOON TO FIT PATIENT FOR LIFE VEST, UNLESS DISCHARGE DATE IS NOT GOING TO BE THIS WEEKEND.
--- NOTE | 2019-09-11 10:48 | NUR ---
UP TO BSC/CHAIR WITH PHYSICAL THERAPY, TOLERATED WELL. VERY SMALL SOFT BOWEL MOVEMENT NOTED. C/O RIGHT SHOULDER AND RIB PAIN WITH MOVEMENT. NORCO 1 TAB GIVEN PER ORDERS. CONTINUE TO MONITOR AND TX PRN.
--- NOTE | 2019-09-11 17:30 | NUR ---
SHIFT SUMMARY A&OX4, UP TO CHAIR WITH PT THIS AM USING 1 PERSON SBA/GAIT BELT/WALKER AND BACK TO BED WITH RN THIS AFTERNOON WITH 1 PERSON ASSIST; TOLERATED WELL. INTERMITTENT PAIN TO RIGHT SHOULDER AND RIB AREA, NORCO X2 GIVEN AND APPLIED HEATING PAD TO CHEST WALL AREA. A-FIB WITH CONTROL RATE 90'S. BP STABLE, AMIDODRINE BEING GIVEN PER ORDERS. DENIES NO SOB. TENTANTIVELY WILL BE FITTED FOR LIFE VEST SUNDAY AFTER 1600 IF BEING DISCHARGED WITHIN A TWO DAY PERIOD. WILL KEEP DR ANDERSON [employer] UPDATED IF ANY CHANGES. BOWEL MOVEMENT TODAY ON BEDSIDE COMMONDE. CONTINUES TO HAVE PITTING EDEMA TO BILATERAL LE'S, DRESESSINGS CHANGED. POOR APPETITE NOTED BUT TAKING LIQUIDS IN FINE. NO OTHER CHANGES, WILL REPORT OFF TO NOC SHIFT.
--- NOTE | 2019-09-11 20:00 | NUR ---
ASSUMED CARE NOTE: ASSUMED CARE OF PT @ 1900, RECEVIED REPORT FROM MARTÍNEZ POLLACK. PT A/OX3, ABLE TO ANSWER QUESTIONS APPROPRIATLY. PT IS ON RA WITH SPO2 ABOVE 90%, LUNG SOUNDS CLEAR T/O. PT IN AFIB WITH HR IN THE 90'S, VITALS STABLE. AFEBRILE. PT STATES RIB PAIN AND RIGHT SHOULDER PAIN OT BE 4/10, PT DECLINED PAIN MEDS AT THIS TIME. ACTIVE BOWEL TONES HEARD IN ALL FOUR QUADRANTS. STANTON PATNET AND DRAINING NIMO URINE, WITH WHITE SEDIMENT. BED AT LOWEST LEVEL, CALL LIGHT WITHIN REACH, WILL CONTINUE TO MONITOR PT T/O SHIFT.
[2019-09-12 04:12] LABS: BASOPHILS ABSOLUTE AUTO 0.01 K/mm3 (0.00-0.23); BASOPHILS PERCENT AUTO 0 % (0-2); EOSINOPHILS ABSOLUTE AUTO 0.02 K/mm3 (0.00-0.68); EOSINOPHILS PERCENT AUTO 0 % (0-6); Hematocrit 37.4 % (37.0-53.0); Hemoglobin 11.9 g/dL (13.5-17.5); IMMATURE GRAN ABSOLUTE AUTO 0.08 K/mm3 (0.00-0.10); IMMATURE GRAN PERCENT AUTO 1 % (0-1); LYMPHOCYTES ABSOLUTE AUTO 0.67 K/mm3 (0.84-5.20); LYMPHOCYTES PERCENT AUTO 7 % (21-46); MONOCYTES ABSOLUTE AUTO 0.71 K/mm3 (0.16-1.47); MONOCYTES PERCENT AUTO 7 % (4-13); Mean Corpuscular HGB 32.1 pg (26.0-34.0); Mean Corpuscular HGB Conc 31.8 g/dL (31.5-36.5); Mean Corpuscular Volume 101 fL (80-100); Mean Platelet Volume 10.9 fL (9.1-12.4); NEUTROPHILS ABSOLUTE AUTO 8.15 K/mm3 (1.96-9.15); NEUTROPHILS PERCENT AUTO 85 % (41-73); Platelet Count 338 K/mm3 (150-400); RDW Coefficient Variation 16.2 % (11.7-14.2); RDW Standard Deviation 60.4 fL (35.1-46.3); Red Blood Cell Count 3.71 M/mm3 (4.30-5.90); White Blood Cell Count 9.64 K/mm3 (4.00-11.30)
[2019-09-12 04:26] LABS: Bun/Creatinine Ratio 33.6 (12.0-20.0); Calcium, Blood 9.1 mg/dL (8.5-10.1); Creatinine, Blood 1.46 mg/dL (0.60-1.20); Potassium, Blood 4.4 mmol/L (3.5-5.5)
[2019-09-12 04:35] LABS: International Normalized Ratio 4.15
--- NOTE | 2019-09-12 04:56 | NUR ---
UPDATE: CALLED PLACED, TO HOSPITALIST FOR ELEVATED INR, ORDERS FOR AN ULTRASOUND WERE GIVEN.
--- NOTE | 2019-09-12 05:41 | NUR ---
SHIFT SUMMARY: PT HAS BEEN SLEEPING FOR MOST OF THE SHIFT. PT HAS BEEN REFUSING TO BE REPOSITIONED. PT STATES HE HAS BEEN REPOSITIONING SELF. PT CONTINUES TO BE ALERT AND ORIENTED. PT DID NOT REQUIRE OXYGEN T/O THE NIGHT AND HAS REMAINED ON RA WITH SPO2 ABOVE 90% PT DENIES SOB. PT HAS BEEN MEDICATED FOR PAIN PER EMAR FOR R SHOULDER AND RIB PAIN. PT HAS REMAINED IN AFIB, WITH HR IN THE 80'S. PT HAD A CRITICAL INR OF 4.15, ORDERS TO OBTAIN A LIVER ULTRASOUND GIVEN. STANTON PATNET AND DRAINING NIMO URINE. WILL CONTINUE TO MONITOR PT UNTIL REPORT IS GIVEN TO ONCOMING SHIFT.
--- NOTE | 2019-09-12 07:18 | NUR ---
LIVER U/S IN PROGRESS.
--- NOTE | 2019-09-12 07:19 | NUR ---
ASSUMED CARE OF PATIENT. LIVER U/S IN PROGRESS.
--- NOTE | 2019-09-12 08:01 | NUR ---
STAT VITAMIN K DOSE NO THERE FROM PHARMACY. SPOKE TO PHARMACIST Mary Ann PRATT, STATED IT HAS TO BE COMPOUNDED AND WILL BE HERE SOON.
--- NOTE | 2019-09-12 09:40 | NUR ---
DR. HAUSER IN TO SEE PT. DECIDED NOT TO D/C PT TODAY, WILL KEEP HIM OVER THE WEEKEND FOR CONTINUED ABX. WAS TO BE FITTED FOR LIFE VEST TODAY IN ANTICIPATION OF D/C. CALLED [facility], SPOKE TO YEIMY FROM [facility]. FITTING WILL BE RE-SCHEDULED FOR THE WEEKEND IN PREP FOR SUNDAY D/C.
--- NOTE | 2019-09-12 18:34 | NUR ---
SHIFT SUMMARY: A&O X 3, IN GOOD SPIRITS. C/O CONSTANT ACHING PAIN IN CHEST AND R SHOULDER, REPRODUCIBLE BY PALPATION; MANAGED WITH CURRENT REGIMEN. CARDIAC RHYTHM IS A FIB WITH RATE IN 70-100'S WITH FREQUENT PVC'S. LUNGS DIM WITH CRACKLES IN LLL. USING O2 @ 2 L/MIN NC PRN FOR SOB, WANTS HOME OXYGEN AT DISCHARGE. CHANGED TO PCU STATUS. STANTON REMOVED, IS VOIDING SMALL AMTS FREQUENTLY. DID SHORT EXERCISE SESSION WITH PHYSICAL THERAPY. DECLINED BATH AND LINEN CHANGE.
--- NOTE | 2019-09-12 20:00 | NUR ---
PT AWAKE LAYING IN BED WATCHING TV. PM CARE DONE WITH BACK RUB. CONTINUES TO HAVE PAIN TO RIGHT SHOULDER, PAIN INCREASES WITH MOVEMENT. WILL MEDICATE FOR PAIN PER ORDERS. DENIES NO SOB, 2L/NC IN PLACE.VSS. CONTINUE TO MONITOR AND TX PRN.
--- NOTE | 2019-09-12 23:40 | NUR ---
CONTINUES TO HAVE INTERITTENT DISCOMFORT TO CHEST/RIB AREA. HEATING PAD PLACED TO BACK AREA. CONTINUE TO MONITOR AND TX PRN.
--- NOTE | 2019-09-13 01:00 | NUR ---
PT RESING COMFORTABLE IN BED. HEATING PAD HELPING WITH DISCOMFORT. CONTINUE TO MONITOR.
--- NOTE | 2019-09-13 03:30 | NUR ---
HAVING SOME LEFT SHOULDER BLADE PAIN. PAIN MED GIVEN, REPOSITIONED AND HEATING PAD IN PLACE.
[2019-09-13 03:39] LABS: International Normalized Ratio 3.4; Prothrombin Time Results 33.9 Sec (9.7-11.5)
[2019-09-13 03:44] LABS: Albumin, Blood 2.6 g/dL (3.4-5.0); Anion Gap 7 mmol/L (6-16); Blood Urea Nitrogen 52 mg/dL (8-24); Bun/Creatinine Ratio 32.9 (12.0-20.0); CO2, Blood 30 mmol/L (21-32); Chloride, Blood 97 mmol/L (98-108); Creatinine, Blood 1.58 mg/dL (0.60-1.20); Glomerular Filtration Rate 45 (60-); Glucose, Blood 129 mg/dL (70-99); Phosphorus, Blood 3.8 mg/dL (2.5-4.9); Potassium, Blood 4.1 mmol/L (3.5-5.5); Sodium, Blood 134 mmol/L (136-145)
--- NOTE | 2019-09-13 04:00 | NUR ---
GOOD RELIEF WITH PAIN MED. DENIES NO PAIN. RESTING/SLEEPING COMFORTABLE.
--- NOTE | 2019-09-13 05:15 | NUR ---
SHIFT SUMMARY PT STATES NO SOB AND WAS ABLE TO ROOM O2 2L/NC AND TOLERATED WELL T/O THE NIGHT, SATS >90%. 80'S-90'S A-FIB. BP STABLE. C/O RIGHT SHOULDER, CHEST WALL/RIBS AND LEFT SHOULDER BLADE PAIN. NORCO TOTAL OF 2 TABS GIVEN FOR RELIEF. ADDITIONALLY, HEATING PAD TO BACK AREA, REPOSITIONING SELF TO COMFORT USING BED CONTROL. USING URINAL IN BED; TOLERATING WELL. CHANGED BIALTERAL DRESSINGS TO LE'S. BILATERAL VASCULAR ULCERS HEALING VERY WELL NOTED FROM PREVIOUS DRESSING CHANGE ON 09/10. NO OTHER CHANGES NOTED, WILL REPORT OFF TO DAY SHIFT.
--- NOTE | 2019-09-13 19:00 | NUR ---
ASSUMED CARE ASSUMED CARE OF PATIENT. AWAKE AND ALERT. ORIENTED AND COOPERATIVE. CONTINUES WITH C/O LEFT SHOULDER AND CHEST PAIN WITH MOVEMENT. SLIGHT DYSPNEA NOTED WITH EXERTION. RA SATS STABLE AT THIS TIME. MONITOR SHOWS AFIB, RATE 80s. VOIDING FREQUENT SMALL AMOUNTS OF NIMO URINE WITHOUT DIFFICULTY. SEE SHIFT ASSESSMENT FOR FULL ASSESSMENT.
--- NOTE | 2019-09-13 19:16 | NUR ---
SHIFT SUMMARY: PCU STATUS. A&O X 3, PLEASANT. C/O ACHING PAIN IN L CHEST AND SHOULDER, REPRODUCIBLE BY PALPATION; IS ADEQUATELY MANAGED WITH CURRENT REGIMEN AND PT HAS BEEN EDUCATED TO REQUEST PAIN MEDICATION WHEN PAIN STARTS TO ESCALATE TO GETTER PAIN RELIEF. GOT UP TO CHAIR FOR ~ 3-4 HOURS, TOLERATED WELL. USING URINAL, SMALL AMOUNTS FREQUENTLY. POOR APPETITE. PERSISTENT EDEMA IN BLE WITH BLISTERS AND WEEPING. WILL BE FITTED FOR LIFE VEST TOMORROW MORNING.
[2019-09-14 04:25] LABS: International Normalized Ratio 2.92; Prothrombin Time Results 29.4 Sec (9.7-11.5)
[2019-09-14 04:28] LABS: Albumin, Blood 2.6 g/dL (3.4-5.0); Anion Gap 7 mmol/L (6-16); Blood Urea Nitrogen 56 mg/dL (8-24); Bun/Creatinine Ratio 33.7 (12.0-20.0); CO2, Blood 31 mmol/L (21-32); Chloride, Blood 96 mmol/L (98-108); Creatinine, Blood 1.66 mg/dL (0.60-1.20); Glomerular Filtration Rate 43 (60-); Glucose, Blood 128 mg/dL (70-99); Potassium, Blood 4.6 mmol/L (3.5-5.5); Sodium, Blood 134 mmol/L (136-145)
--- NOTE | 2019-09-14 06:45 | NUR ---
SHIFT SUMMARY NO ACUTE CHNAGES DURING NOC. SLEPT INTERMITTENTLY WITHOUT DIFFICULTY. MEDICATED X 2 WITH NORCO FOR C/O SHOULDER AND CHEST PAIN WITH MOVING. PT STATED GOOD RELIEF WITH NORCO. REMAINED ON RA T/O NOC. SATS STABLE AND RESPIRATIONS EVEN AND UNLABORED. VSS. MONITOR SHOWS AFIB WITH CONTROLLED RATE. VOIDING FREQUENT SMALL AMOUNTS OF NIMO URINE. WILL REPORT TO DAY SHIFT RN WHEN AVAILABLE.
--- NOTE | 2019-09-14 13:33 | NUR ---
PT TRANSPORTED FROM FROM ICU. 3L O2 VIA NC. PLEASANT, COOPERATIVE. SWELLING NOTED BILATERAL LEGS WITH MEPILEX DRESSINGS IN PLACE. HR AFIB 80S AT THIS TIME. DENIES NEEDS OR CONCERNS.
--- NOTE | 2019-09-14 13:46 | NUR ---
PT TRANSFERRED TO U 13 AT 1248 VIA HIS BED, HAS ALL BELONGINGS INCLUDING ZOLL LIFE VEST AND ALL ACCESSORIES IN BOX.
--- NOTE | 2019-09-14 18:02 | NUR ---
SHIFT SUMMARY: PT TRANSFERRED FROM ICU. LIFE VEST IN PLACE. PT ASKED TO SIT IN RECLINER WHICH REQUIRED 2 PERSON ASSIST. PT HAD DIFFICULT TIME WITH AMBULATION, STATING HIS KNEES LOCKED UP. PHYSICAL THERAPY CONSULT IN PLACE. DENIES FURTHER NEEDS OR CONCERNS AT THIS TIME.
[2019-09-15 04:24] LABS: International Normalized Ratio 3.3
[2019-09-15 04:27] LABS: Albumin, Blood 2.6 g/dL (3.4-5.0); Anion Gap 6 mmol/L (6-16); Blood Urea Nitrogen 61 mg/dL (8-24); Bun/Creatinine Ratio 31.4 (12.0-20.0); CO2, Blood 30 mmol/L (21-32); Calcium, Blood 8.9 mg/dL (8.5-10.1); Chloride, Blood 97 mmol/L (98-108); Creatinine, Blood 1.94 mg/dL (0.60-1.20); Glomerular Filtration Rate 36 (60-); Glucose, Blood 114 mg/dL (70-99); Phosphorus, Blood 4.3 mg/dL (2.5-4.9); Potassium, Blood 4.4 mmol/L (3.5-5.5); Sodium, Blood 133 mmol/L (136-145)
--- NOTE | 2019-09-15 06:11 | NUR ---
SHIFT SUMMARY PATIENT HAS HAD NO CHANGES THIS SHIFT. PATIENT HAS BEEN UP IN THE RECLINER ALL NIGHT. REPOSTITIONED ONCE WITH ANOTHER NURSE PATIENT IS TOO WEAK TO STAND ON HIS OWN. CALL LIGHT IN REACH. URINAL IN REACH.
--- NOTE | 2019-09-15 07:38 | NUR ---
ASSUMED CARE: PT RESTING QUIETLY IN RECLINER. DR BARRON CAME TO SEE PT AND STATES PLAN IS TO POSSIBLY PLACE ICD TOMORROW SO HE DOES NOT HAVE TO GO HOME WITH LIFE VEST. WILL ADMINISTER VITAMIN K PER ORDERS
--- NOTE | 2019-09-15 09:00 | NUR ---
DR HAUSER AND JESENIA FROM [facility] CAME TO SEE PT. INFORMED THAT DR BARRON PLANS TO TAKE PT FOR ICD PLACEMENT TOMORROW. ALSO MADE THEM AWARE TAHT PT IS WEAK REQUIRING AT LEAST 2 PERSON ASSISTANCE FOR MOVEMENT TO RECLINER OR CHAIR. ACCORDING TO REPORT FROM ICU NURSE, PT'S IS IN [place] AND PT'S SON LIVES ON [address] BUT NOT WITH PT. DR HAUSER STATES PT MAY NEED REPEAT PT EVAL PRIOR TO DC. [facility] AWARE
--- NOTE | 2019-09-15 13:59 | NUR ---
DISCUSSED WITH PHYSICAL THERAPY PT'S DIFFICULTY TRANSFERRING FROM CHAIR. TOLD THERAPIST THAT ICD IS SCHEDULED FOR TOMORROW AM AND THAT DR HAUSER WISHES FOR REEVALUATION TO BE DONE PRIOR TO DC.
[2019-09-15 15:24] LABS: International Normalized Ratio 2.98
--- NOTE | 2019-09-15 18:52 | NUR ---
SHIFT SUMMARY: PLAN IS FOR ICD PLACEMENT TOMORROW. 2 DOSES OF VITAMIN K GIVEN TO DECREASE INR. PT DECIDED HE IS OK WITH SNF DC IF HE CAN GO TO SAME FACILITY . PHYSICAL THERAPY TO REEVALUATE TOMORROW AFTER ICD PLACEMENT. NO FURTHER NEEDS OR CONCERNS AT THIS TIME.
[2019-09-16 04:30] LABS: International Normalized Ratio 2.6; Prothrombin Time Results 26.4 Sec (9.7-11.5)
[2019-09-16 04:31] LABS: Albumin, Blood 2.6 g/dL (3.4-5.0); Anion Gap 5 mmol/L (6-16); Blood Urea Nitrogen 69 mg/dL (8-24); Bun/Creatinine Ratio 35.6 (12.0-20.0); CO2, Blood 31 mmol/L (21-32); Calcium, Blood 8.8 mg/dL (8.5-10.1); Chloride, Blood 97 mmol/L (98-108); Creatinine, Blood 1.94 mg/dL (0.60-1.20); Glomerular Filtration Rate 36 (60-); Glucose, Blood 120 mg/dL (70-99); Potassium, Blood 4.9 mmol/L (3.5-5.5); Sodium, Blood 133 mmol/L (136-145)
--- NOTE | 2019-09-16 05:38 | NUR ---
SHIFT SUMMARY PT SLEEPING IN ROOM IN CHAIR COMFORTABLY AT THIS TIME. NO ACUTE CHNAGES IN STATUS T/O NIGHT. RESP EVEN UNLABORED ON 3L NC W/ SATS >92%. DENIED CP OR SOB. SLEPT WELL T/O NIGHT. LIFE VEST IN PLACE. PT WAS NPO AT MIDNIGHT FOR AICD PLACEMENT THIS AM. DENIED OTHER NEEDS. PT USING URINAL IN CHAIR. CALLS APPROPRIATELY. CALL LIGHT IN REACH.
[2019-09-16 08:49] LABS: International Normalized Ratio 2.4; Prothrombin Time Results 24.4 Sec (9.7-11.5)
--- NOTE | 2019-09-16 19:10 | NUR ---
SHIFT SUMMARY PT A&Ox4; CALM AND COOPERATIVE WITH CARE. PT UP IN RECLINER WITH FEET ELEVATED FOR MAJORITY OF SHIFT. PT SOB WITH EXERTION; ON 3L O2 VIA NC TITRATED TO 2.5L O2 VIA NC. PT DENIES PAIN, NAUSEA, CHEST PAIN/PRESSURE, AND DIZZINESS T/O SHFIT. PT RECEIVING IV ANTIBIOTICS. LOW BP THIS AM, STARTED ON MIDODRINE THIS AM. PT HAS LIFE VEST IN PLACE; PLANS FOR AICD PLACEMENT ONCE INR LOWER. VSS. NO OTHER ACUTE CHANGES NOTED DURING SHIFT. REPORT GIVEN TO ONCOMING RN.
--- NOTE | 2019-09-16 22:00 | NUR ---
Assumed Care Pt presents sitting in recliner, VSS, breathing even and unlabored on 1.5L NC, alert and oriented. Conversation regarding code status - pt states "I don't want you to do anything if my heart stopped or i stopped breathing". pt is fully alert and oriented, educated on options for code status and continues to emphasize desire for DNR. Hosptialist called and updated on pt request, order changed as pt requests. DNR band placed on Pt. See shift assessment for detailed systems assessment. Pt complaining of pain to the chest/ribs d/t previous CPR. Pt takes all meds whole with water, voids into urinal at recliner. No acute concerns to note at this time, will continue to monitor.
--- NOTE | 2019-09-17 05:57 | NUR ---
Shift Summary No acute changes overnight, VSS. Alert and oriented. No changes from initial shift assessment. pt remains on 1.5L NC, denies SOB. No events on tele. Awaiting INR results for update on when ICD can be placed per MD notes. Pt able to take all pills whole with water, sat in recliner all night, slept approx 5 hours. Pt able to reposition self to comfort. Pt able to express all needs with call light, calm and cooperative with care. No acute concerns overnight.
[2019-09-17 06:25] LABS: Hematocrit 38.2 % (37.0-53.0)
[2019-09-17 06:40] LABS: Albumin, Blood 2.6 g/dL (3.4-5.0); Anion Gap 8 mmol/L (6-16); Blood Urea Nitrogen 72 mg/dL (8-24); Bun/Creatinine Ratio 35.5 (12.0-20.0); CO2, Blood 29 mmol/L (21-32); Calcium, Blood 8.9 mg/dL (8.5-10.1); Chloride, Blood 97 mmol/L (98-108); Creatinine, Blood 2.03 mg/dL (0.60-1.20); Glomerular Filtration Rate 34 (60-); Glucose, Blood 111 mg/dL (70-99); Phosphorus, Blood 4.1 mg/dL (2.5-4.9); Potassium, Blood 4.6 mmol/L (3.5-5.5); Sodium, Blood 134 mmol/L (136-145)
[2019-09-17 06:42] LABS: International Normalized Ratio 2.86; Prothrombin Time Results 28.8 Sec (9.7-11.5)
[2019-09-17 11:47] LABS: International Normalized Ratio 2.24
[2019-09-17 11:56] LABS: Prothrombin Time Results 22.9 Sec (9.7-11.5)
[2019-09-17 16:45] LABS: International Normalized Ratio 2.38; Prothrombin Time Results 24.2 Sec (9.7-11.5)
--- NOTE | 2019-09-17 18:43 | NUR ---
SHIFT SUMMARY PT A&Ox4; CALM AND COOPERATIVE WITH CARE. UP IN CHAIR DURING SHIFT; BACK IN BED FOR PROCEDURE THIS AFTERNOON. 2 PERSON ASSIST TO BED; ENCOURAGED PT TO WORK WITH PT/OT; REFUSED TODAY. PT RECEIVED 2 UNIT FFP TO LOWER INR FOR PROCEDURE THIS AM; APPEARS TO HAVE TOLERATED WELL. PT DENIES PAIN, CHEST PAIN, DIZZINESS, AND NAUSEA. PT SOB WITH EXERTION, ON 2L O2 VIA NC, ATTEMPTED TO TITRATE TO 1L O2 VIA NC PT DESATURATED TO 85-88% ON 1L AT REST. AICD PLACED TO LEFT CHEST; PRESSURE DRESSING IN PLACE. NO BLEEDING, BRUISNG OR HEMATOMA NOTED. VSS. PT REPORT MILD CHEST TENDERNESS TO SITE. PT PLACED IN SLING AND EDUCATED TO NOT USE ARM OR LIFT ABOVE SHOULDER. VSS. NO OTHER ACUTE CHANGES NOTED DURING SHIFT. WILL CONTINUE TO MONITOR UNITL REPORT GIVEN TO ONCOMING RN.
[2019-09-18 03:46] LABS: BASOPHILS ABSOLUTE AUTO 0.02 K/mm3 (0.00-0.23); BASOPHILS PERCENT AUTO 0 % (0-2); EOSINOPHILS ABSOLUTE AUTO 0.01 K/mm3 (0.00-0.68); EOSINOPHILS PERCENT AUTO 0 % (0-6); Hemoglobin 12.1 g/dL (13.5-17.5); IMMATURE GRAN ABSOLUTE AUTO 0.08 K/mm3 (0.00-0.10); IMMATURE GRAN PERCENT AUTO 1 % (0-1); LYMPHOCYTES ABSOLUTE AUTO 0.46 K/mm3 (0.84-5.20); LYMPHOCYTES PERCENT AUTO 5 % (21-46); MONOCYTES ABSOLUTE AUTO 0.64 K/mm3 (0.16-1.47); MONOCYTES PERCENT AUTO 7 % (4-13); Mean Corpuscular HGB 32.1 pg (26.0-34.0); Mean Corpuscular HGB Conc 31.8 g/dL (31.5-36.5); Mean Corpuscular Volume 101 fL (80-100); Mean Platelet Volume 11.3 fL (9.1-12.4); NEUTROPHILS ABSOLUTE AUTO 7.71 K/mm3 (1.96-9.15); NEUTROPHILS PERCENT AUTO 86 % (41-73); NRBC ABSOLUTE 0.03 K/mm3 (0.00-0.02); NRBC Auto 0.3 /100 WBC (0.0-0.2); Platelet Count 255 K/mm3 (150-400); RDW Standard Deviation 61.5 fL (35.1-46.3); Red Blood Cell Count 3.77 M/mm3 (4.30-5.90); White Blood Cell Count 8.92 K/mm3 (4.00-11.30)
[2019-09-18 03:59] LABS: International Normalized Ratio 2.9
[2019-09-18 04:04] LABS: Albumin, Blood 2.6 g/dL (3.4-5.0); Anion Gap 13 mmol/L (6-16); Blood Urea Nitrogen 85 mg/dL (8-24); Bun/Creatinine Ratio 35.3 (12.0-20.0); CO2, Blood 24 mmol/L (21-32); Calcium, Blood 8.7 mg/dL (8.5-10.1); Chloride, Blood 95 mmol/L (98-108); Creatinine, Blood 2.41 mg/dL (0.60-1.20); Glomerular Filtration Rate 28 (60-); Glucose, Blood 104 mg/dL (70-99); Phosphorus, Blood 5.4 mg/dL (2.5-4.9); Potassium, Blood 5.2 mmol/L (3.5-5.5); Sodium, Blood 132 mmol/L (136-145)
[2019-09-18 04:05] LABS: Prothrombin Time Results 29.2 Sec (9.7-11.5)
--- NOTE | 2019-09-18 05:16 | NUR ---
SHIFT SUMMARY: PATIENT VSS, SLEPT WELL THIS SHIFT, TURNING SELF IN BED, BED LOW AND LOCKED, CALL LIGHT WITHIN REACH, NO ISSUES AT THIS TIME. PATIENT LEFT DRESSING SITE IS C/D/I WITH NO SIGN OF INFECTION.
--- NOTE | 2019-09-18 08:00 | NUR ---
pt laying in bed awake watching tv, a/ox3, pleasant and cooperative with care, follows commands well, denies pain, just some muscle soreness around pacer site, lungs are clear in upper mathew, dim in bases, resp even and unlaobred, no cough noted, hrirr, tele in place running afib, no pacer spikes noted, edema noted to b/l le, ppp faint, cap refill <3sec, vs stable, afebrile, iv sites are clear and patent, btx4, abd flat soft nontender, voids without diff, skin c/w/d, except pacer site to lcw with dressing in place, no bruising, swelling noted, b/l le are pink, and slightly warm to touch, heavy two person assist to chair, itzel, call light in reach.
--- NOTE | 2019-09-18 10:39 | NUR ---
BLADDER SCAN 304
--- NOTE | 2019-09-18 13:30 | NUR ---
pt up to chair with pt and budget clerk, heavy two person assist, is in a recliner with legs up. states he's doing ok. call light in reach.
--- NOTE | 2019-09-18 18:38 | NUR ---
pt continues in chair, states he's doing ok, no complaints except that he is very tired and weak. no acute changes this shift. call light in reach.
[2019-09-19 04:16] LABS: Hematocrit 38.1 % (37.0-53.0); Hemoglobin 12.2 g/dL (13.5-17.5)
[2019-09-19 04:33] LABS: International Normalized Ratio 2.94; Prothrombin Time Results 29.6 Sec (9.7-11.5)
[2019-09-19 04:37] LABS: Albumin, Blood 2.7 g/dL (3.4-5.0); Anion Gap 11 mmol/L (6-16); Blood Urea Nitrogen 95 mg/dL (8-24); Bun/Creatinine Ratio 33.1 (12.0-20.0); CO2, Blood 27 mmol/L (21-32); Calcium, Blood 8.6 mg/dL (8.5-10.1); Chloride, Blood 94 mmol/L (98-108); Creatinine, Blood 2.87 mg/dL (0.60-1.20); Glomerular Filtration Rate 23 (60-); Glucose, Blood 107 mg/dL (70-99); Magnesium, Blood 2.5 mg/dL (1.6-2.4); Phosphorus, Blood 4.9 mg/dL (2.5-4.9); Potassium, Blood 4.7 mmol/L (3.5-5.5); Sodium, Blood 132 mmol/L (136-145)
--- NOTE | 2019-09-19 07:57 | NUR ---
pt laying in recliner, reports he slept there last night, a/ox3, pleasant and cooperative with care, follows commands well, denies pain, states he is feeling good and wants to go home, lungs are clear in upper mathew, dim in bases, resp even and unlabored, no cough noted, hrirr, tele in place running afib per monitor, no pacing noted, edema noted to b/l le, legs are pink, with outlined demarcation, skin is very dry on legs, dressing to right calf, iv site is clear and patent, btx4, abd flat soft nontender, voids via urinal, maew, very weak, is two person max assist, itzel, call light in reach.
--- NOTE | 2019-09-19 13:30 | NUR ---
pt in recliner, doing ok, reports no complaints. held midodrine as his b/p in the 120's. call light in reach.
--- NOTE | 2019-09-19 18:13 | NUR ---
pt back to bed, he was repositioned. denies complaints or needs. b/p in the 130's, held midodrine. call light in reach.
[2019-09-20 04:10] LABS: Hematocrit 36.2 % (37.0-53.0); Hemoglobin 11.8 g/dL (13.5-17.5)
[2019-09-20 04:28] LABS: Albumin, Blood 2.6 g/dL (3.4-5.0); Anion Gap 10 mmol/L (6-16); Blood Urea Nitrogen 96 mg/dL (8-24); Bun/Creatinine Ratio 33.1 (12.0-20.0); CO2, Blood 29 mmol/L (21-32); Calcium, Blood 8.4 mg/dL (8.5-10.1); Chloride, Blood 95 mmol/L (98-108); Glomerular Filtration Rate 22 (60-); Glucose, Blood 97 mg/dL (70-99); Magnesium, Blood 2.5 mg/dL (1.6-2.4); Phosphorus, Blood 4.3 mg/dL (2.5-4.9); Potassium, Blood 4.3 mmol/L (3.5-5.5); Sodium, Blood 134 mmol/L (136-145)
--- NOTE | 2019-09-20 06:24 | NUR ---
END OF SHIFT SUMMARY NO ACUTE CHANGES THIS SHIFT. VSS. PACEMAKER INSERTION SITE STABLE. SLIGHLY TENDER, NOT HOT TO PALPATION AND WITHOUT EXTRA REDNESS AROUND THE SITE. ARM IN SLING. PT IS BEING TURNED BY STAFF. REMAINS IN AFIB 80'S HR, BP STABLE. HAS BEEN ON RA ALL NIGHT. REDNESS IN LEGS HAS NOT EXTENDED ANYMORE THIS SHIFT PAST THE MARKER LINE JHONY PREVIOUSLY. WOUNDS PRESENT, MEPILEX IN PLACE. PT HAS SHOWN LITTLE TO NO PACER SPIKES ON TELE BUT HR HAS REMAINED STEADILY IN THE 80'S. 24 HOUR URINE BEING COLLECTED. IT WAS FOUND ON THIS SHIFT THAT THERE WAS NO TIME/DATE WRITTEN ON THE CONTAINER. IT WAS BELIEVED THAT THE 24 HR URINE WAS STARTED ON DAY SHIFT. WHEN THE PREVIOUS DAY SHIFT RN WAS CALLED, SHE STATED NOT KNOWING WHEN IT WAS STARTED BUT THAT IT WAS PRESENT UPON HER BEGINNING OF SHIFT. THE PREVIOUS NIGHT RN CALLED AND STATED IT WAS STARTED AT 2330, AT THE TIME THIS WAS FOUND, THE 24HR TIME LIMIT EXCEEDED. NEW COLLECTION CANNISTER RETRIEVED, PT LABEL PLACED ON CANNISTER AND DATE/TIME WRITTEN IN [place] ON CONTAINER. TO BE COLLECTED BY THIS RN ON 09/21/19 AM WRITTEN ON THE JUG. IRIS COMPLETED BY CEMENT MASON. OTHERWISE, PT HAS USED CALL LIGHT APPROPRIATELY. WILL COBNTINUE TO MONITOR UNTIL SHIFT CHANGE.
[2019-09-20] MEDS ORDERED: ACET325 PO (12:49)
[2019-09-20] MEDS ORDERED: Amiodarone HCl200 MG PO (12:51)
[2019-09-20] MEDS ORDERED: ATORVASTATIN CA40 M1 PO (12:51)
[2019-09-20] MEDS ORDERED: METO25ER PO (12:52)
[2019-09-20] MEDS ORDERED: Midodrine HCl10 MG PO (12:53)
[2019-09-20] MEDS ORDERED: BUME2 PO (12:53)
[2019-09-20] MEDS ORDERED: CEPH500 PO (12:54)
--- NOTE | 2019-09-20 13:57 | NUR ---
PT UNABLE TO GET OUT OF CHAIR WITH 2 PERSON ASSIST, GAITBELT AND WALKER; PT NON WEIGHT BEARING TO LEFT ARM; PT UNABLE TO STAND, NOT AT BASELINE; DISCUSSED HOME MOBILITY. PT AGREEABLE TO GOING TO SNF/[facility]; NOTIFIED DR WYATT, HOLDING DISCHARGE HOME AND PLANNING ON DISCHARGING TO SNF. NOTIFIED COMPENSATION INTERN MARGAUX SPENCER, PLANS TO START DISCHARGE PROCESS.
--- NOTE | 2019-09-20 17:55 | NUR ---
SHIFT SUMMARY AND TRANSFER NOTE PT A&Ox3; CALM AND COOPDATEIVE [facility] CARE. PT UP IN CHAIR FOR MAJORITY OF SHIFT; LIFT USED FROM RECLINER TO BED PT UNABLE TO GET OUT OF RECLINER WITH TWO PERSON ASSIST. PLANS TO DISCHARGE TO [facility]. PT REPORTS PAIN IN HIP; DENIES NEEDS FOR PAIN MEDICINE; ASSIST PT WITH REPOSITION FOR COMFORT. PT DENIES SOB; CHEST PAIN/PRESSURE; DIZZINESS; AND NAUSEA. CELLULITUS TO BLE; CONTINUES TO BE RED; PT WOUNDS TO RLE DRAINING YELLOW FLUIDS. AICD PLACED TO LEFT CHEST WALL; NO DRAINAGE ASITE; NO BRUISING NOTED; NO CREPITOUS NOTED; LEFT ARM REMAINS IN SLING; ENCOURAGING PT TO DO ROM; EDUCATED PT NOT TO USE LEFT ARM TO PUSH OFF THE CHAIR BED TO STAND. PT RECEIVING IV BUMEX AND ALBUMIN. 24 HOUR URINE IN PROCESS; URINE COLLECTED AND REMAINS ON ICE. VSS. NO OHTER ACUTE CHANGES NOTED. REPORT GIVEN TO ELIAS VELEZ RN; PT TO ROOM AT APPOX 1730.
--- NOTE | 2019-09-20 19:24 | NUR ---
SHIFT SUMMARY: PATIENT TRANSFER FROM PCU-13 THIS SHIFT. PT A&O; CALM AND COOPERATIVE WITH CARE. NO C/O PAIN SINCE ARRIVAL ON MEDICAL. 24 HOUR URINE COLLECTION IN PROGRESS. FLUID RESTRICTION:1000ML/24HRS. AICD IMPLANTED TO L CHEST 09/16 (DR GARCES); DRESSING C/D/I. EXPECTED D/C TO SNF SUNDAY/SUNDAY. REPORT GIVEN TO ONCOMING RN.
--- NOTE | 2019-09-21 03:54 | NUR ---
PT A/O X4. PLEASANT AND COOPERATIVE. DENIES CHEST PAIN, CHEST PRESSURE, NAUSEA, SOB. VSS. [address] L ARM IN SLING FROM AICD IMPLANT DONE ON 09/16. CIRCULATION, MOVEMENT AND TEMPERATURE WITHIN NORMAL LIMITS IN L HAND. NO ACUTE CHANGES.
[2019-09-21 04:01] LABS: Hematocrit 34.3 % (37.0-53.0); Hemoglobin 11.1 g/dL (13.5-17.5)
[2019-09-21 04:19] LABS: Albumin, Blood 2.6 g/dL (3.4-5.0); Anion Gap 9 mmol/L (6-16); Blood Urea Nitrogen 99 mg/dL (8-24); Bun/Creatinine Ratio 35.1 (12.0-20.0); CO2, Blood 29 mmol/L (21-32); Calcium, Blood 8.1 mg/dL (8.5-10.1); Chloride, Blood 96 mmol/L (98-108); Creatinine, Blood 2.82 mg/dL (0.60-1.20); Glomerular Filtration Rate 23 (60-); Glucose, Blood 108 mg/dL (70-99); Magnesium, Blood 2.6 mg/dL (1.6-2.4); Phosphorus, Blood 3.9 mg/dL (2.5-4.9); Sodium, Blood 134 mmol/L (136-145)
[2019-09-21 07:03] LABS: Protein, Urine Quantitative 52.7 mg/dL (0.0-11.9)
[2019-09-21 10:44] LABS: International Normalized Ratio 2.69; Prothrombin Time Results 27.2 Sec (9.7-11.5)
--- NOTE | 2019-09-21 17:14 | NUR ---
SHIFT SUMMARY PT HAVING RETENTION THIS SHIFT. PT BLADDER SCANNED & STRAIGHT CATHED ONCE SO FAR THIS SHIFT. PT TOLERATING L ARM IMMOBILIZER WELL. PT WORKED WITH PHYSICAL THERAPY TODAY. NO ACUTE CHANGES IN ASSESSMENT AT THIS TIME. VSS. PT L CHEST WALL DRESSING INTACT. WILL CONTINUE TO MONITOR UNTIL TURNOVER IS COMPLETE.
[2019-09-22 04:16] LABS: Hematocrit 34.5 % (37.0-53.0); Hemoglobin 11.1 g/dL (13.5-17.5)
--- NOTE | 2019-09-22 04:29 | NUR ---
SUMMARY NO NEW ISSUES NOTED. PT HAS BEEN VOIDING 100 MLS AT A TIME T/O SHIFT. PT WAS CATH ONCE THIS SHIFT. PT FLUID RESTRICTION HAS BEEN MAINTAINED. PT SLEPT OFF AND ON. PT CURRENTLY SLEEPING AND BREATHING EASY. CALL LIGHT IN REACH.
[2019-09-22 04:30] LABS: International Normalized Ratio 2.48; Prothrombin Time Results 25.2 Sec (9.7-11.5)
[2019-09-22 04:36] LABS: Albumin, Blood 2.7 g/dL (3.4-5.0); Anion Gap 8 mmol/L (6-16); Blood Urea Nitrogen 95 mg/dL (8-24); Bun/Creatinine Ratio 34.5 (12.0-20.0); CO2, Blood 29 mmol/L (21-32); Chloride, Blood 99 mmol/L (98-108); Creatinine, Blood 2.75 mg/dL (0.60-1.20); Glomerular Filtration Rate 24 (60-); Glucose, Blood 106 mg/dL (70-99); Magnesium, Blood 2.6 mg/dL (1.6-2.4); Phosphorus, Blood 3.7 mg/dL (2.5-4.9); Potassium, Blood 3.6 mmol/L (3.5-5.5); Sodium, Blood 136 mmol/L (136-145)
--- NOTE | 2019-09-22 13:39 | NUR ---
PT STRAIGHT CATHED. PT STRAIGHT CATHED AFTER BLADDER SCAN OF 612. PT WAS ABLE TO VOID 200 CC AND THEN STRAIGHT CATH VOLUME OF 200 OUTPUT.
--- NOTE | 2019-09-22 14:02 | NUR ---
[facility] REPORT GIVEN TO NURSE BELLO AT .
--- NOTE | 2019-09-22 14:20 | NUR ---
PT DISCHARGED. PT DISCHARGED IN STABLE CONDITION. REPORT GIVEN TO [facility]. PT TRANSPORTED VIA [facility]. NO CHANGES IN ASSESSMENT PRIOR TO DC.
== END 2019-09-22 14:16 | DRG 242 ==
LOC: ER 11:23 → PCU 14:22 → ICUW 14:22 → PCU 09-14 12:43 → MEDS 09-20 17:25 → ENPENDDIS 09-22 10:41 → MEDS 09-22 14:16
PROVIDERS: Emergency Medicine; Family Medicine; Internal Medicine; Internal Medicine Cardiovascular Disease; Internal Medicine Nephrology; ADMIT Internal Medicine
PROC: 0JH604Z Insertion of Pacemaker, Single Chamber into Chest Subcutaneous Tissue and Fascia, Open Approach (ICD-10-PCS; principal; 2019-09-17)
PROC: 02HK3JZ Insertion of Pacemaker Lead into Right Ventricle, Percutaneous Approach (ICD-10-PCS; 2019-09-17)
PROC: 3E0132A Introduction of Anti-Infective Envelope into Subcutaneous Tissue, Percutaneous Approach (ICD-10-PCS; 2019-09-17)
DX: I47.2 Ventricular tachycardia (principal); J18.9 Pneumonia, unspecified organism; I50.23 Acute on chronic systolic (congestive) heart failure; N17.0 Acute kidney failure with tubular necrosis; N39.0 Urinary tract infection, site not specified; I13.0 Hypertensive heart and chronic kidney disease with heart failure and stage 1 through stage 4 chronic kidney disease, or unspecified chronic kidney disease; L03.116 Cellulitis of left lower limb; L03.115 Cellulitis of right lower limb; E87.1 Hypo-osmolality and hyponatremia; E11.22 Type 2 diabetes mellitus with diabetic chronic kidney disease; N18.9 Chronic kidney disease, unspecified; Z79.4 Long term (current) use of insulin; I48.20 Chronic atrial fibrillation, unspecified; I46.9 Cardiac arrest, cause unspecified; I95.9 Hypotension, unspecified; Z95.0 Presence of cardiac pacemaker; R79.89 Other specified abnormal findings of blood chemistry; I25.10 Atherosclerotic heart disease of native coronary artery without angina pectoris; Z95.5 Presence of coronary angioplasty implant and graft; E87.5 Hyperkalemia; E83.39 Other disorders of phosphorus metabolism; E88.09 Other disorders of plasma-protein metabolism, not elsewhere classified
CPT/HCPCS: 0099U; 33249; 36415; 36430; 51702; 71045; 71046; 76770; 80047; 80048; 80053; 80069; 81001; 81050; 82947; 83036; 83605; 83735; 83880; 84145; 84156; 84460; 84484; 85007; 85014; 85018; 85025; 85027; 85610; 86850; 86900; 86901; 87040; 87086; 93005; 93010; 93975; 96365-59; 96367-59; 96375-59; 97110; 97116; 97162; 97530; 99152; 99153; 99285-25; A9270; A9270-GY; C1722; C1895; J0282; J0456; J0690; J0696; J1644; J1650; J2250; J3010; J3430; J7030; J7040; J7050; P9041; P9046; P9059; U0002

== ENCOUNTER 2019-09-28 05:41 | Observation (INO) | payer MEDICARE ==
[~2019-09-28] VITALS: Ht 182.9 cm; Wt 108.9 kg
[~2019-09-28 05:41] MED LIST changes: +ACET325 PO; +ATORVASTATIN CA40 M1 PO; +Amiodarone HCl200 MG PO; +BUME2 PO; +CEPH500 PO; +METO25ER PO; +Midodrine HCl10 MG PO; +SPIRONOLACTONE25 MG PO
[2019-09-28 06:11] LABS: BASOPHILS ABSOLUTE AUTO 0.02 K/mm3 (0.00-0.23); BASOPHILS PERCENT AUTO 0 % (0-2); EOSINOPHILS ABSOLUTE AUTO 0.01 K/mm3 (0.00-0.68); EOSINOPHILS PERCENT AUTO 0 % (0-6); Hematocrit 38.5 % (37.0-53.0); Hemoglobin 12.9 g/dL (13.5-17.5); IMMATURE GRAN ABSOLUTE AUTO 0.04 K/mm3 (0.00-0.10); IMMATURE GRAN PERCENT AUTO 0 % (0-1); LYMPHOCYTES ABSOLUTE AUTO 0.19 K/mm3 (0.84-5.20); LYMPHOCYTES PERCENT AUTO 2 % (21-46); MONOCYTES ABSOLUTE AUTO 0.56 K/mm3 (0.16-1.47); MONOCYTES PERCENT AUTO 5 % (4-13); Mean Corpuscular HGB 30.9 pg (26.0-34.0); Mean Corpuscular HGB Conc 33.5 g/dL (31.5-36.5); NEUTROPHILS ABSOLUTE AUTO 10.02 K/mm3 (1.96-9.15); NEUTROPHILS PERCENT AUTO 92 % (41-73); NRBC ABSOLUTE 0.02 K/mm3 (0.00-0.02); NRBC Auto 0.2 /100 WBC (0.0-0.2); Platelet Count 56 K/mm3 (150-400); RDW Coefficient Variation 17.9 % (11.7-14.2); RDW Standard Deviation 58.3 fL (35.1-46.3); Red Blood Cell Count 4.17 M/mm3 (4.30-5.90); White Blood Cell Count 10.84 K/mm3 (4.00-11.30)
[2019-09-28 06:14] LABS: Mean Corpuscular Volume 92 fL (80-100)
[2019-09-28 06:35] LABS: Albumin, Blood 2.2 g/dL (3.4-5.0); Albumin/Globulin Ratio 0.6 (0.8-1.8); Bilirubin, Total 5.6 mg/dL (0.1-1.0); Bun/Creatinine Ratio 33.3 (12.0-20.0); Creatinine, Blood 4.12 mg/dL (0.60-1.20); Globulin, Blood 3.9 g/dL (2.2-4.0); Potassium, Blood 4.6 mmol/L (3.5-5.5); Total Protein, Blood 6.1 g/dL (6.4-8.2)
[2019-09-28 07:21] LABS: International Normalized Ratio 9.64
--- NOTE | 2019-09-28 09:49 | NUR ---
Spoke with Dr Vaughn and Dr Mathews prior to Pt visit. Discussed case and goals of care. Pt has a POLST with wishes to be DNR and Comfort Measures Only. Pt would like to have the bleeding to stop and focus on comfort measures only. Pt is A&O and denies pain at this time. Pt reports SOB and oxygen is helping with dyspnea. Confirmed with Pt of wishes. Educated Pt on Comfort Measures Only philosophy with V/U made by Pt. Pt still wishes to focus on comfort. Bedside MARTÍNEZ Bazan at bedside doing assessment with RAGS LABORER helping with personal care. Pt is worried about losing his glasses. No other concerns at this time. Called and spoke with staff at [facility] and provided update. Relayed concerns of Pt's glasses. Staff will call if they locate his glasses. Palliative Care will F/U with Pt later today.
--- NOTE | 2019-09-28 13:08 | NUR ---
Pt resting in bed and denies pain. Pt appears more lethargic compared to previous visit. Pt's and son at bedside. Engaged in therapeutic conversation regarding Pt's goals and wishes. Family is in agreement of Pt's wishes. Discussed prognosis and philosophy of comfort care. Discussed option for hospice if Pt does not become imminent during hospital stay. Son and are requesting hospice at home and not at facility. Educated on hospice philosphy. Son reports ability to provide the care Pt needs at home. Educated on the need for someone to be with Pt 24 hours a day with V/U made by family. Son is tearful at times and emotional support was offered. Provided hospice brochures for agencies available in their area. No other concerns reported at this time. Called and spoke with facility nurse Rachel per request from Pt and family. Provided update and request for family to pick and shovel worker some of Pt's belongings. Rachel reports belongings will be ready for pick and shovel worker. Palliative Care will remain available for symptom management and support visits.
--- NOTE | 2019-09-28 15:39 | NUR ---
SHIFT SUMMARY PT WAS AN ER ADMIT THIS MORNING AND HE RESIDES AT [facility]. PER REPORT HE HAD BRIGHT RED BLOOD IN HIS BRIEF THIS MORNING. UPON ARRIVAL HE WAS A/O X 4 AND ABLE TO ANSWER ALL QUESTIONS APPROPRIATELY. HE HAD BEEN STARTED ON 1 UNIT OF RBCS IN THE ER WHICH WAS COMPLETED HERE. HE IS ON COMFORT CARE AND THE PATIENT STATED WITH THE PALLIATIVE CARE RN IN THE ROOM THAT HE WISHES TO REMAIN COMFORTABLE/DNR. OVER THE COURSE OF THIS AFTERNOON HE HAS BECOME WEAKER, MORE PALE AND DUSKY. HE IS LETHERGIC AND HAS A HARD TIME KEEPING HIS EYES OPEN, HE IS SLURRING HIS WORDS. WITH EACH BRIEF CHANGE IT IS FILLED WITH BRIGHT RED BLOOD. THE DR IS AWARE. PT IS RESTLESS IS BED BUT IS UNABLE TO REPOSITION HIMSELF. NURSING HAS REPOSITIONED HIM MULTIPLE TIMES WITH PILLOWS TO OFFLOAD PRESSURE AND HE IS ON AN EGG CRATE. PALLIATIVE CARE RN HAS BEEN IN TO SEE HIM MULTIPLE TIMES. PT DID REPORT SOME AIR HUNGER WHICH HE WAS MEDICATED FOR AND IT DID SEEM TO RELIEVE HIS SYMPTOMS SO HE COULD REST MORE COMFORTABLY. HIS SON AND WERE HERE UPON HIS ADMIT WITH DR APPROVAL AND HIS 2 DAUGHTERS ARE ON THEIR WAY UP NOW TO SEE HIM PER THE NURSING RIB TRIM SEPARATOR. HE IS RESTING IN BED WITH HIS CALL LIGHT IN REACH.
--- NOTE | 2019-09-28 16:42 | NUR ---
F/U visit with Pt this afternoon. Pt resting in bed and appears anxious. Pt requesting to sit up on side of bed to dangle his legs. Educated Pt on amount of blood loss and inability to safely tolerate sitting up on edge of bed. Pt's daughters have arrived to visit. Bedside RN Beni also present during visit. Pt agreeable for having his bed in chair position and is agreeable to Ativan. Spoke with one of daughters outside of Pt's room and educated on Pt becoming imminent. Educated on the importance of reassuring Pt. Offered emotional support. Provided Palliative Care contact imformation and instructed to call with any questions or concerns. Spoke with Dr Mathews and requested Ativan. Placed order for Ativan 0.5mg-1mg IV every 2 hours as needed for anxiety or sleep per V/O from Dr Mathews. Called and spoke with Pt's son Caleb and discussed home preference and updated on Pt's condition. Caleb reports he will discuss further with his mom (Pt's ). Palliative Care will remain available.
--- NOTE | 2019-09-29 04:36 | NUR ---
SHIFT SUMMARY ASSUMED CARE OF PT AT 1900. PT IS A/OX3 AND COULD MAKE HIS NEEDS KNOWN FOR MOST OF THE SHIFT UNTIL ABOUT 0430 WHEN HE STARTED TO SWING HIS LEFT OFF THE BED AND REMOVE HIS COVERS, PT VERBAL RESPONSES ALSO STARTED TO BECOME INCOHERENT. MEDICATED PT FOR AGITATION. PT DENIED PAIN T/O THE NIGHT AND DECLINED PAIN MEDICATIONS. PT IS HAVING LIQUID BLOOD COMING FROM HIS ANUS. PT C/O HIS IV IN HIS R AC, IV REMOVED BUT ADVISED THE PT TO KEEP THE OTHER IV FOR FUTURE ANXIETY MEDS UNTIL OTHERWISE. NO ACUTE EVENTS OVERNIGHT. PT SLEPT ON AND OFF T/O THE NIGHT. CALL LIGHT IN REACH, BED IN LOWEST POSTION, WILL CONTINUE TO MONITOR UNTIL DAYSHIFT NURSE ARRIVES.
--- NOTE | 2019-09-29 08:13 | NUR ---
COMFORT CARE ASSESSMENT: MEDICATED FOR PAIN PER EMAR. NO DYSPNEA/SOB/SECRETIONS. NO FAMILY PRESENT. WCTM.
[2019-09-29 10:21] LABS: International Normalized Ratio 3.11; Prothrombin Time Results 31.2 Sec (9.7-11.5)
--- NOTE | 2019-09-29 10:50 | NUR ---
COMFORT CARE ASSESSMENT: PT IN NO APPARENT DISTRESS. NO DYSPNEA/SOB/SECRETIONS. FAMILY IN ROOM. WCTM.
--- NOTE | 2019-09-29 11:48 | NUR ---
COMFORT CARE ASSESSMENT: MEDICATED FOR PAIN PER EMAR. NO DYSPNEA/SOB/SECRETIONS. FAMILY IN ROOM. WCTM..
--- NOTE | 2019-09-29 12:00 | NUR ---
COMFORT CARE VISIT FOR S/S MANAGEMENT AND SUPPORT TO PT/FAMILY. PT SUPINE IN BED WITH HOB ELEVATED. SON AND DAUGHTER AT BEDSIDE AND RN HAD JUST BEEN IN THE ROOM WITH THEM. REVIEWED S/S WE ARE NOTING, INDICATING PT'S STATUS IN DYING PROCESS. FAMILY QUESTIONS RE: S/S MANAGEMENT, MEDICATIONS, LABS ANSWERED. BOOKLET RE: S/S OF IMPENDING AND S/S THEY MAY BEGIN TO SEE GIVEN TO BHAVYA AND SON. ASSISTED RN WITH POSITION CHANGE, TURNING PT TO LEFT SIDE, SUPPORTED WITH PILLOWS. WHILE DOING THIS, PT SHOWING NONVERBAL INDICATORS OF PAIN, MOANING, GRUNTING, GRIMACING. RN MEDICATED WITH ROXANOL PER eMAR FOR PAIN. PT'S HANDS AND FEET ARE MOTTLED AND DAUGHTER NOTES THIS HAS INCREASED FROM YESTERDAY. PT WEARING AN ATTENDS. HE IS NONRESPONSIVE VERBALLY. WHEN RAISING ARMS AND VOCALIZING, PT CALMS EASILY WITH TOUCH OR HAND HOLDING. TALKED TO FAMILY ABOUT PT'S PREFERENCES AND MEASURES THAT HAVE PROVIDED HIM COMFORT PREVIOUSLY. ENCOURAGED TOUCH AND SPEAKING TO HIM IN QUIET CALM VOICE TO SOOTH HIM NEEDED. PT HAS EVEN, UNLABORED RESPIRATIONS. HE DOES NOT SEEM TO HAVE EXCESS UPPER AIRWAY SECRETIONS AT THIS TIME. EXPLAINED TO FAMILY THAT THEY MAY HEAR THIS LATER AND TALKED ABOUT CHANGES IN RESPIRATIONS THEY MAY WITNESS. SON IS VERY CONCERNED ABOUT PT'S CARE AT [facility] AND I ENCOURAGED HIM TO DISCUSS HIS CONCERNS WITH [facility] STAFF/MANAGEMENT. 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 TIME SPENT LISTENING AND SUPPORTING PT'S BHAVYA AND SON. DISCUSSED CURRENT STATUS WITH CM THIS AM AND PHYSICS DEPARTMENT CHAIR ALSO.
--- NOTE | 2019-09-29 15:40 | NUR ---
Initial spiritual care note: Mr. Nicholson's 2 dtrs were present at [facility]. Both are here from out-of-town to be with their dad. One son lives locally and will be in later. Dtrs appear guarded and did not engage in conversation, They declined prayer or needs. Pt is non-jain. Complimented dtrs on their love and devotion to pt. Advised I would remain available for comfort/budget counselor.
--- NOTE | 2019-09-29 16:29 | NUR ---
COMFORT CARE ASSESSMENT: PT IN NO APPARENT DISTRESS. NO DYSPNEA/SOB/SECRETIONS. FAMILY IN ROOM. WCTM.
--- NOTE | 2019-09-29 16:30 | NUR ---
COMFORT CARE ASSESSMENT: PT IN NO APPARENT DISTRESS. NO DYSPNEA/SOB/SECRETIONS. FAMILY MEMBERS PRESENT. WCTM.
--- NOTE | 2019-09-29 19:24 | NUR ---
COMFORT CARE ASSESSMENT: PT IN NO APPARENT DISTRESS. NO DYSPNEA/SOB/SECRETIONS. FAMILY IN ROOM. WCTM.
--- NOTE | 2019-09-29 19:25 | NUR ---
COMFORT CARE ASSESSMENT: PT IN NO APPARENT DISTRESS. NO DYSPNEA/SOB/ SECRETIONS. FAMILY PRESENT IN ROOM. WCTM.
--- NOTE | 2019-09-29 19:26 | NUR ---
SHIFT SUMMARY: NO ACUTE CHANGES TO REPORT THIS SHIFT. COMFORT CARE MEASURES IN EFFECT. MEDICATED FOR PAIN PER EMAR. FAMILY MEMBERS IN ROOM. REPORT GIVEN TO ONCOMING RN.
--- NOTE | 2019-09-30 04:10 | NUR ---
SHIFT SUMMARY ADMITTED FOR ACUTE GI BLEED. DNR CODE. NOW COMFORT CARE. Q 2 TURNS. PRINCESS BLOOD FROM RECTUM THROUGHOUT SHIFT. HIS 2 ADULT DAUGHTERS IN ROOM AT BEDSIDE FOR THE FIRST HALF OF SHIFT. PT IS COOL TO THE TOUCH, SKIN APPEARS MOTTLED. HE MOANS WHEN TURNED, THEN SETTLES BACK TO SLEEP IMMEDIATELY. HE IS NONVERBAL & NONRESPONSIVE TO QUESTIONS. HE IS FROM [facility], WHERE HIS IS ALSO A RESIDENT. PACEMAKER SUTURE IN LEFT UPPER CHEST.
--- NOTE | 2019-09-30 07:41 | NUR ---
FINAL DISCHARGE NURSING NOTE: PATIENT PICKED UP BY MARLENI BENNETT FROM [facility]. PATIENT DEPARTED MEDICAL FLOOR AT 0735.
== END 2019-09-30 04:45 ==
LOC: ER 05:41 → MEDS 07:42
PROVIDERS: Emergency Medicine; Internal Medicine; ADMIT Internal Medicine
DX: K92.2 Gastrointestinal hemorrhage, unspecified (principal); I25.10 Atherosclerotic heart disease of native coronary artery without angina pectoris; I50.22 Chronic systolic (congestive) heart failure; I48.20 Chronic atrial fibrillation, unspecified; E11.22 Type 2 diabetes mellitus with diabetic chronic kidney disease; N18.5 Chronic kidney disease, stage 5; Z66 Do not resuscitate; Z79.01 Long term (current) use of anticoagulants; Z79.02 Long term (current) use of antithrombotics/antiplatelets; Z86.73 Personal history of transient ischemic attack (TIA), and cerebral infarction without residual deficits; Z95.5 Presence of coronary angioplasty implant and graft
CPT/HCPCS: 36415; 36430; 80053; 83690; 85025; 85379; 85610; 85730; 86850; 86900; 86901; 86923; 93005; 93010; 96365; 96366; 96368; 96375; 96376; 99285-25; C9113; G0378; J2060; J2270; J3430; J7030; P9016; P9059